=== PATIENT | female | born 1935 | race Caucasian/White ===

== ENCOUNTER → 2017-02-22 | Outpatient (CLI) | payer MEDICARE, BC ==
[~2017-02-22] MED LIST: ALBENZA200 MG PO; ALLERGY SHOT; ANTIVERT 25MG25 MG PO; ARMOUR THYROID PO; ASPIR-LOW81 MG PO; ASPIRIN 32325 MG/TAB PO; ASPIRIN E.C. 8181 MG PO; Armour Thyroid; BENADRYL25 M2; BENADRYL25 MG PO; CALCIUM CARBONATE PO; CEPHALEXIN500 M1 PO; CLARITIN 1010 MG/TAB PO; CLARITIN PO; CLOPIDOGREL; COMBIVENT INH14.7 GM IH; COUMADIN 1MG1 MG/TAB PO; COZAAR; COZAAR 25MG25 MG/TAB PO; DEMEROL 50M50 MG/TAB PO; DOXYCYCLINE 10100 MG PO; EX-LAX15 MG PO; FISH OIL CONC1000 MG PO; FISH OIL1000 MG PO; GOOD SENSE ASP325 M1 PO; HCTZ 25MG25 MG PO; HUMULIN 70/3100 U/M1 SQ; HUMULIN 70/3100 U/ML SC; HYZAAR 50-12.1 UDTAB PO; INSULIN 50/5100 U/ML IJ; INSULIN 70/3100 U/ML IJ; KEPPRA750 MG PO; LASIX 20MG TABL20 MG PO; LASIX PO; LASIX40 MG PO; LEVOTHYROXIN0.025 MG PO; LEVOTHYROXIN0.125 MG PO; LISINOPRIL5 MG PO; LOPRESSOR; LOSARTAN POTASS50 MG PO; LOVENOX120 MG/0.8 SQ; MEPERIDINE HCL50 MG PO; MICARDIS20 MG PO; OGEN; PLAVIX 75MG TAB75 MG PO; RED YEAST RICE PO; SEE LIST; SENSIPAR PO; SYNTHROID0.125 MG/T PO; THYROID; THYROID PO; TRICOR145 MG PO; TYLENOL 500MG500 MG; ZOCOR; ZOCOR 20MG20 MG PO; ZOFRAN 4MG T4 MG/TAB PO
[2017-02-22 17:02] LABS: ADJUSTED CALCIUM 8.8 mg/dL (8.4-10.2); ALBUMIN 4.1 gm/dL (3.5-5.0); BILIRUBIN,TOTAL 0.7 mg/dL (0.0-1.0); CALCIUM 8.9 mg/dL (8.4-10.2); CREATININE, serum 1.1 mg/dL (0.52-1.25); POTASSIUM 4.2 mmol/L (3.4-5.0); TOTAL PROTEIN 7.3 gm/dL (6.4-8.2)
== END ==
LOC: COL.LAB 15:58
PROVIDERS: Internal Medicine Endocrinology, Diabetes & Metabolism
DX: G45.8 Other transient cerebral ischemic attacks and related syndromes (principal); E11.43 Type 2 diabetes mellitus with diabetic autonomic (poly)neuropathy; Z79.4 Long term (current) use of insulin; I12.9 Hypertensive chronic kidney disease with stage 1 through stage 4 chronic kidney disease, or unspecified chronic kidney disease; N18.3 Chronic kidney disease, stage 3 (moderate); E78.2 Mixed hyperlipidemia; E66.01 Morbid (severe) obesity due to excess calories; E03.8 Other specified hypothyroidism

== ENCOUNTER → 2017-02-26 | Outpatient (CLI) | payer MEDICARE, BC ==
[2017-02-27 20:42] LABS: ALBUMIN/CREATININE RATIO URINE 17.5 mg/g (0.0-29.0)
== END ==
LOC: COL.LAB 15:34
DX: G45.8 Other transient cerebral ischemic attacks and related syndromes (principal); E78.2 Mixed hyperlipidemia; E11.43 Type 2 diabetes mellitus with diabetic autonomic (poly)neuropathy; Z79.4 Long term (current) use of insulin; E66.01 Morbid (severe) obesity due to excess calories; E03.8 Other specified hypothyroidism; I25.10 Atherosclerotic heart disease of native coronary artery without angina pectoris; I12.9 Hypertensive chronic kidney disease with stage 1 through stage 4 chronic kidney disease, or unspecified chronic kidney disease; N18.3 Chronic kidney disease, stage 3 (moderate)

== ENCOUNTER 2017-03-18 13:09 | Observation (INO) | payer MEDICARE, BC ==
[~2017-03-18 13:09] MED LIST changes: -BENADRYL25 M2; -HUMULIN 70/3100 U/M1 SQ; -LOVENOX120 MG/0.8 SQ; -SYNTHROID0.125 MG/T PO; -TYLENOL 500MG500 MG
[2017-03-18] MEDS ORDERED: BENADRYL25 M2 (14:32)
[2017-03-18] MEDS ORDERED: TYLENOL 500MG500 MG (14:33)
[2017-03-18 16:32] VITALS: BP 129/52; PULSE 68; TEMP 98.7
[2017-03-18 16:36] LABS: CALCIUM 8.5 mg/dL (8.4-10.2); CREATININE, serum 1.22 mg/dL (0.52-1.25); MEAN CELL VOLUME 94 fl (80.0-100.0); MEAN CORPUSCULAR HGB CONC 32 g/dl (33.0-37.0); MEAN PLATELET VOLUME 9.7 fl (7.4-10.4); PLATELET COUNT 390 K/mm3 (130-400); POTASSIUM 4.1 mmol/L (3.4-5.0); RED BLOOD COUNT 3.79 M/mm3 (4.10-5.30); WHITE BLOOD COUNT 10.3 K/mm3 (4.8-10.8)
[2017-03-18 16:38] LABS: HEMATOCRIT 35.5 % (37.0-47.0); HEMOGLOBIN 11.5 g/dl (12.5-16.0); MEAN CORPUSCULAR HEMOGLOBIN 30 pg (27.0-31.0)
[2017-03-18 16:44] LABS: INR 3.3 (0.8-3.0); PROTHROMBIN TIME 37.9 SECONDS (9.7-12.8)
[2017-03-18 19:40] VITALS: BP 175/67; PULSE 67; TEMP 98.3
[2017-03-19 00:15] VITALS: BP 162/66; PULSE 65; TEMP 98.5
[2017-03-19 04:14] VITALS: BP 145/62; PULSE 66; TEMP 98.5
[2017-03-19 07:45] LABS: BASO # 0.1 (0.0-0.2); BASO % 0.8 % (0.0-2.0); EOS # 0.2 (0.0-0.7); EOS % 2.2 % (0-4.0); GRAN # 7.1 (1.4-6.5); HEMOGLOBIN 12.1 g/dl (12.5-16.0); LYMPH # 2.5 (1.2-3.4); MEAN CELL VOLUME 93 fl (80.0-100.0); MEAN CORPUSCULAR HEMOGLOBIN 30 pg (27.0-31.0); MEAN CORPUSCULAR HGB CONC 33 g/dl (33.0-37.0); MONO # 0.8 (0.1-0.6); MONO % 7.7 % (1.7-9.3); PLATELET COUNT 356 K/mm3 (130-400); RED BLOOD COUNT 3.99 M/mm3 (4.10-5.30); WHITE BLOOD COUNT 10.7 K/mm3 (4.8-10.8)
[2017-03-19 08:07] LABS: CALCIUM 8.7 mg/dL (8.4-10.2); CREATININE, serum 0.99 mg/dL (0.52-1.25); POTASSIUM 3.9 mmol/L (3.4-5.0)
[2017-03-19 08:13] LABS: HEMATOCRIT 36.9 % (37.0-47.0)
[2017-03-19 08:18] VITALS: BP 133/66; PULSE 76; TEMP 97.6
[2017-03-19 09:44] VITALS: BP 152/69; PULSE 73
[2017-03-19] MEDS ORDERED: HUMULIN 70/3100 U/M1 SQ (09:47)
[2017-03-19] MEDS ORDERED: SYNTHROID0.125 MG/T PO (09:49)
== END 2017-03-19 12:27 | disposition home or self-care (01) ==
LOC: SDCO 13:09 → MEDICAL 13:10 → SDCO 13:37 → MEDICAL 13:37 → SDCO 03-19 08:30 → MEDICAL 03-19 12:27
PROVIDERS: Internal Medicine
DX: D12.2 Benign neoplasm of ascending colon (principal); D12.3 Benign neoplasm of transverse colon; D12.4 Benign neoplasm of descending colon; K62.1 Rectal polyp; D12.8 Benign neoplasm of rectum; K64.0 First degree hemorrhoids; K63.89 Other specified diseases of intestine
CPT/HCPCS: OP; G0378; G0379; J2405; J2704; J2765; J3010; J7030

== ENCOUNTER 2017-04-12 06:36 | Day surgery (SDC) | payer MEDICARE, BC ==
[~2017-04-12] VITALS: Ht 154.9 cm; Wt 73.7 kg
[~2017-04-12 06:36] MED LIST changes: +BENADRYL25 M2; +HUMULIN 70/3100 U/M1 SQ; +SYNTHROID0.125 MG/T PO; +TYLENOL 500MG500 MG
[2017-04-12 07:10] VITALS: BP 164/73; PULSE 80; TEMP 97.5
[2017-04-12] MEDS ORDERED: LOVENOX120 MG/0.8 SQ (07:47)
[2017-04-12 08:50] VITALS: BP 136/77; PULSE 98
[2017-04-12 09:05] VITALS: BP 121/66; PULSE 88
[2017-04-12 09:20] VITALS: BP 107/88; PULSE 92
[2017-04-12 09:35] VITALS: BP 148/91; PULSE 83
== END 2017-04-12 09:40 | disposition home or self-care (01) ==
LOC: SDCO 06:36
DX: D12.3 Benign neoplasm of transverse colon (principal); D12.4 Benign neoplasm of descending colon; D12.8 Benign neoplasm of rectum; K63.89 Other specified diseases of intestine; D12.0 Benign neoplasm of cecum; Z86.73 Personal history of transient ischemic attack (TIA), and cerebral infarction without residual deficits; I10 Essential (primary) hypertension; E78.5 Hyperlipidemia, unspecified; R56.9 Unspecified convulsions; E11.9 Type 2 diabetes mellitus without complications; I25.10 Atherosclerotic heart disease of native coronary artery without angina pectoris; E03.9 Hypothyroidism, unspecified; Z79.01 Long term (current) use of anticoagulants; Z79.899 Other long term (current) drug therapy; Z79.4 Long term (current) use of insulin; Z99.81 Dependence on supplemental oxygen
CPT/HCPCS: OP; J2704

== ENCOUNTER → 2017-11-29 | Outpatient (CLI) | payer MEDICARE, BC ==
[~2017-11-29] MED LIST changes: +LOVENOX120 MG/0.8 SQ
== END ==
LOC: COL.RAD 12:36
DX: M47.812 Spondylosis without myelopathy or radiculopathy, cervical region (principal); G31.1 Senile degeneration of brain, not elsewhere classified; G93.89 Other specified disorders of brain; R55 Syncope and collapse; F22 Delusional disorders
CPT/HCPCS: A9585

== ENCOUNTER 2018-01-04 15:30 | Emergency (ER) | payer MEDICARE, BC ==
[~2018-01-04] VITALS: Ht 157.5 cm; Wt 78.2 kg
[2018-01-04 15:33] VITALS: BP 147/63
[2018-01-04 16:21] LABS: BASO # 0.1 (0.0-0.2); BASO % 0.4 % (0.0-2.0); EOS % 0.4 % (0-4.0); GRAN # 8.5 (1.4-6.5); GRAN % 76.3 % (42.2-75.2); LYMPH # 1.7 (1.2-3.4); LYMPH % 15.5 % (20.0-51.0); MEAN CELL VOLUME 97 fl (80.0-100.0); MEAN CORPUSCULAR HGB CONC 33 g/dl (33.0-37.0); MEAN PLATELET VOLUME 9.7 fl (7.4-10.4); MONO # 0.8 (0.1-0.6); PLATELET COUNT 349 K/mm3 (130-400); RED BLOOD COUNT 3.55 M/mm3 (4.10-5.30); REDCELL DISTRIBUTION WIDTH-CV 14.2 % (11.5-14.5)
[2018-01-04 16:22] LABS: INR 2.3 (0.8-3.0); PROTHROMBIN TIME 26.7 SECONDS (9.7-12.8)
[2018-01-04 16:23] LABS: ALBUMIN 4.1 gm/dL (3.5-5.0); BILIRUBIN,TOTAL 0.2 mg/dL (0.0-1.0); CALCIUM 8.5 mg/dL (8.4-10.2); CREATININE, serum 0.97 mg/dL (0.52-1.25); POTASSIUM 4.1 mmol/L (3.4-5.0); TOTAL PROTEIN 7.1 gm/dL (6.4-8.2)
[2018-01-04 16:30] LABS: HEMATOCRIT 34.4 % (37.0-47.0); HEMOGLOBIN 11.3 g/dl (12.5-16.0); MEAN CORPUSCULAR HEMOGLOBIN 32 pg (27.0-31.0)
[2018-01-04 16:53] VITALS: PULSE 76; TEMP 97
== END 2018-01-04 16:54 | disposition home or self-care (01) ==
LOC: COL.ER 15:30
PROVIDERS: Emergency Medicine
DX: S00.93XA Contusion of unspecified part of head, initial encounter (principal); S70.01XA Contusion of right hip, initial encounter; E11.9 Type 2 diabetes mellitus without complications; I48.91 Unspecified atrial fibrillation; Z79.01 Long term (current) use of anticoagulants; Z79.4 Long term (current) use of insulin; W18.30XA Fall on same level, unspecified, initial encounter; Y92.009 Unspecified place in unspecified non-institutional (private) residence as the place of occurrence of the external cause

== ENCOUNTER → 2018-04-01 | Emergency (ER) | payer MEDICARE, BC ==
[~2018-04-01] VITALS: Ht 154.9 cm; Wt 76.8 kg
[2018-04-01 10:08] LABS: BASO # 0.1 (0.0-0.2); BASO % 0.4 % (0.0-2.0); EOS # 0.1 (0.0-0.7); EOS % 0.6 % (0-4.0); GRAN # 8.5 (1.4-6.5); GRAN % 76.3 % (42.2-75.2); HEMATOCRIT 35.4 % (37.0-47.0); HEMOGLOBIN 11.8 g/dl (12.5-16.0); LYMPH # 1.6 (1.2-3.4); LYMPH % 13.9 % (20.0-51.0); MEAN CELL VOLUME 96 fl (80.0-100.0); MEAN CORPUSCULAR HEMOGLOBIN 32 pg (27.0-31.0); MEAN CORPUSCULAR HGB CONC 33 g/dl (33.0-37.0); MEAN PLATELET VOLUME 9.4 fl (7.4-10.4); MONO # 0.9 (0.1-0.6); MONO % 8.4 % (1.7-9.3); PLATELET COUNT 341 K/mm3 (130-400)
[2018-04-01 10:15] LABS: BILIRUBIN,TOTAL 0.2 mg/dL (0.0-1.0); CALCIUM 9.3 mg/dL (8.4-10.2); CREATININE, serum 1.1 mg/dL (0.52-1.25); POTASSIUM 3.6 mmol/L (3.4-5.0); TOTAL PROTEIN 7.5 gm/dL (6.4-8.2)
[2018-04-01 10:17] LABS: INR 1.9 (0.8-3.0); PROTHROMBIN TIME 22.4 SECONDS (9.7-12.8)
[2018-04-01 11:47] VITALS: BP 177/86; PULSE 71; TEMP 97.5
== END ==
LOC: COL.ER 09:14
PROVIDERS: Emergency Medicine
DX: S61.411A Laceration without foreign body of right hand, initial encounter (principal); E16.2 Hypoglycemia, unspecified; Z79.4 Long term (current) use of insulin; Z79.01 Long term (current) use of anticoagulants; W18.39XA Other fall on same level, initial encounter
CPT/HCPCS: J7030

== ENCOUNTER 2018-06-25 12:45 | Outpatient (RCR) | payer MEDICARE, BC ==
[2018-07-12] MEDS ORDERED: COUMADIN 3MG3 MG/TAB PO (23:10)
[2018-07-12] MEDS ORDERED: FISH OIL 500 M1 EAC1 PO (23:11)
[2018-07-12] MEDS ORDERED: KEPPRA 500MG500 MG PO (23:12)
[2018-07-12] MEDS ORDERED: SENOKOT8.6 MG PO (23:12)
[2018-07-12] MEDS ORDERED: HUMULIN 70/3100 U/M1 SQ (23:13)
[2018-07-12] MEDS ORDERED: TYLENOL 500MG500 MG PO (23:13)
[2018-07-12] MEDS ORDERED: EPIPEN 2-PAK1 MG/ML IM (23:14)
[2018-07-12] MEDS ORDERED: BENADRYL25 M2 PO (23:14)
[2018-07-12] MEDS ORDERED: LEVOXYL0.125 MG PO (23:15)
== END 2018-07-31 | disposition home or self-care (01) ==
LOC: WSOT
DX: Z46.89 Encounter for fitting and adjustment of other specified devices (principal); S66.39 Other injury of extensor muscle, fascia and tendon of other and unspecified finger at wrist and hand level; W19.XXXD Unspecified fall, subsequent encounter
CPT/HCPCS: G8987-GO; G8988-GO

== ENCOUNTER 2018-07-12 16:54 | Emergency (ER) | payer MEDICARE, BC ==
[~2018-07-12] VITALS: Ht 152.4 cm; Wt 78.2 kg
[2018-07-12 16:56] VITALS: TEMP 98.5
[2018-07-12 17:24] LABS: INR 2.1 (0.8-3.0); PROTHROMBIN TIME 23.7 SECONDS (9.7-12.8)
[2018-07-12 17:26] LABS: ALBUMIN 4.2 gm/dL (3.5-5.0); BASO # 0.1 (0.0-0.2); BASO % 0.9 % (0.0-2.0); BILIRUBIN,TOTAL 0.2 mg/dL (0.0-1.0); CREATININE, serum 1.1 mg/dL (0.52-1.25); EOS # 0.2 (0.0-0.7); EOS % 1.8 % (0-4.0); GRAN # 6.2 (1.4-6.5); HEMATOCRIT 36.3 % (37.0-47.0); LYMPH # 3.1 (1.2-3.4); LYMPH % 29.1 % (20.0-51.0); MEAN CELL VOLUME 95 fl (80.0-100.0); MEAN CORPUSCULAR HEMOGLOBIN 31 pg (27.0-31.0); MEAN CORPUSCULAR HGB CONC 33 g/dl (33.0-37.0); MEAN PLATELET VOLUME 9.8 fl (7.4-10.4); MONO # 0.9 (0.1-0.6); MONO % 8.7 % (1.7-9.3); PLATELET COUNT 394 K/mm3 (130-400); RED BLOOD COUNT 3.84 M/mm3 (4.10-5.30); TOTAL PROTEIN 7.5 gm/dL (6.4-8.2)
[2018-07-12 17:35] LABS: TROPONIN-I 0.017 ng/mL (0.000-0.034)
[2018-07-12 17:42] LABS: MAGNESIUM 1.9 mg/dL (1.6-2.3)
[2018-07-12 20:10] VITALS: BP 188/75; PULSE 77
[2018-07-12] MEDS ORDERED: COUMADIN 3MG3 MG/TAB PO (23:10)
[2018-07-12] MEDS ORDERED: FISH OIL 500 M1 EAC1 PO (23:11)
[2018-07-12] MEDS ORDERED: SENOKOT8.6 MG PO (23:12)
[2018-07-12] MEDS ORDERED: KEPPRA 500MG500 MG PO (23:12)
[2018-07-12] MEDS ORDERED: TYLENOL 500MG500 MG PO (23:13)
[2018-07-12] MEDS ORDERED: HUMULIN 70/3100 U/M1 SQ (23:13)
[2018-07-12] MEDS ORDERED: BENADRYL25 M2 PO (23:14)
[2018-07-12] MEDS ORDERED: EPIPEN 2-PAK1 MG/ML IM (23:14)
[2018-07-12] MEDS ORDERED: LEVOXYL0.125 MG PO (23:15)
== END 2018-07-12 20:12 | disposition home or self-care (01) ==
LOC: COL.ER 16:54
PROVIDERS: Emergency Medicine
DX: I49.3 Ventricular premature depolarization (principal); R07.89 Other chest pain; I10 Essential (primary) hypertension; E78.5 Hyperlipidemia, unspecified; E11.9 Type 2 diabetes mellitus without complications; Z86.73 Personal history of transient ischemic attack (TIA), and cerebral infarction without residual deficits; Z79.01 Long term (current) use of anticoagulants; Z79.4 Long term (current) use of insulin; Z98.890 Other specified postprocedural states; Z90.49 Acquired absence of other specified parts of digestive tract; Z90.710 Acquired absence of both cervix and uterus
CPT/HCPCS: J7030

== ENCOUNTER → 2018-07-28 | Outpatient (CLI) | payer MEDICARE, BC ==
[~2018-07-28] MED LIST changes: +BENADRYL25 M2 PO; +COUMADIN 3MG3 MG/TAB PO; +EPIPEN 2-PAK1 MG/ML IM; +FISH OIL 500 M1 EAC1 PO; +KEPPRA 500MG500 MG PO; +LEVOXYL0.125 MG PO; +SENOKOT8.6 MG PO; +TYLENOL 500MG500 MG PO
[2018-07-28 13:43] LABS: INR 1.7 (0.8-3.0); PROTHROMBIN TIME 19.8 SECONDS (9.7-12.8)
== END ==
LOC: COL.LAB 12:32
PROVIDERS: Family Medicine
DX: I63.50 Cerebral infarction due to unspecified occlusion or stenosis of unspecified cerebral artery (principal)

== ENCOUNTER 2018-08-02 09:30 | Emergency (ER) | payer MEDICARE, BC ==
[~2018-08-02] VITALS: Ht 152.4 cm; Wt 77.3 kg
[2018-08-02 09:33] VITALS: TEMP 97.9
[2018-08-02 10:27] LABS: BASO # 0.1 (0.0-0.2); BASO % 0.7 % (0.0-2.0); EOS # 0.2 (0.0-0.7); EOS % 1.9 % (0-4.0); GRAN # 6.4 (1.4-6.5); GRAN % 59.3 % (42.2-75.2); HEMOGLOBIN 11.7 g/dl (12.5-16.0); LYMPH # 3.1 (1.2-3.4); LYMPH % 28.8 % (20.0-51.0); MEAN CELL VOLUME 96 fl (80.0-100.0); MEAN CORPUSCULAR HEMOGLOBIN 31 pg (27.0-31.0); MEAN CORPUSCULAR HGB CONC 32 g/dl (33.0-37.0); MEAN PLATELET VOLUME 9.6 fl (7.4-10.4); MONO # 0.9 (0.1-0.6); MONO % 8.5 % (1.7-9.3); PLATELET COUNT 391 K/mm3 (130-400); RED BLOOD COUNT 3.78 M/mm3 (4.10-5.30); REDCELL DISTRIBUTION WIDTH-CV 14.6 % (11.5-14.5)
[2018-08-02 10:28] LABS: HEMATOCRIT 36.4 % (37.0-47.0)
[2018-08-02 12:16] LABS: INR 3.1 (0.8-3.0)
[2018-08-02 12:19] LABS: PARTIAL THROMBOPLASTIN TIME 62.3 SECONDS (26.0-37.0)
[2018-08-02 12:24] LABS: ALANINE AMINOTRANSFERASE 26 U/L (9-52); ALBUMIN 3.9 gm/dL (3.5-5.0); ALKALINE PHOSPHATASE 105 U/L (50-136); ANION GAP 12 mmol/L (7-16); AST,SGOT 18 U/L (15-37); BILIRUBIN,TOTAL 0.3 mg/dL (0.0-1.0); BLOOD UREA NITROGEN 22 mg/dL (7-17); CALCIUM 7.4 mg/dL (8.4-10.2); CARBON DIOXIDE 20 mmol/L (22-30); CHLORIDE 104 mmol/L (98-107); CREATININE, serum 1.21 mg/dL (0.52-1.25); GLUCOSE 166 mg/dL (74-106); POTASSIUM 4.9 mmol/L (3.4-5.0); SODIUM 136 mmol/L (137-145); TOTAL PROTEIN 7.2 gm/dL (6.4-8.2)
[2018-08-02 12:36] LABS: TROPONIN-I < 0.012 ng/mL (0.000-0.034)
[2018-08-02 14:20] VITALS: BP 131/78; PULSE 98
[2018-08-03] MEDS ORDERED: NEURONTIN300 MG/CAP PO (10:06)
[2018-08-03] MEDS ORDERED: FENTANYL 12MCG TD (10:10)
[2018-08-04] MEDS ORDERED: DILAUDID 2MG TAB2 MG PO (11:47)
[2018-08-04] MEDS ORDERED: LIDODERM 5% PATC1 EA TP (11:47)
== END 2018-08-02 14:20 | disposition home or self-care (01) ==
LOC: COL.ER 09:30
PROVIDERS: Family Medicine
DX: G89.29 Other chronic pain (principal); M54.5 Low back pain; E11.9 Type 2 diabetes mellitus without complications; R53.81 Other malaise; Z79.4 Long term (current) use of insulin; Z79.02 Long term (current) use of antithrombotics/antiplatelets
CPT/HCPCS: J1170; J7030

== ENCOUNTER 2018-11-29 16:44 | Observation (INO) | payer MEDICARE, BC ==
[~2018-11-29] VITALS: Ht 154.9 cm; Wt 72.1 kg
[~2018-11-29 16:44] MED LIST changes: +DILAUDID 2MG TAB2 MG PO; +FENTANYL 12MCG TD; +LIDODERM 5% PATC1 EA TP; +NEURONTIN300 MG/CAP PO
[2018-11-29] MEDS ORDERED: LEVEMIR100 U/ML SQ (19:26)
[2018-11-29] MEDS ORDERED: LEVOXYL0.125 MG PO (19:27)
[2018-11-29] MEDS ORDERED: TOPROL XL 25MG25 MG PO (19:29)
[2018-11-29 19:54] LABS: BASO # 0.1 (0.0-0.2); BASO % 1.3 % (0.0-2.0); EOS # 0.7 (0.0-0.7); EOS % 6.8 % (0-4.0); GRAN # 7.1 (1.4-6.5); HEMOGLOBIN 10.9 g/dl (12.5-16.0); LYMPH # 1.7 (1.2-3.4); MEAN CELL VOLUME 85 fl (80.0-100.0); MEAN CORPUSCULAR HEMOGLOBIN 28 pg (27.0-31.0); MEAN CORPUSCULAR HGB CONC 32 g/dl (33.0-37.0); MEAN PLATELET VOLUME 9.1 fl (7.4-10.4); MONO # 0.8 (0.1-0.6); MONO % 7.5 % (1.7-9.3); PLATELET COUNT 399 K/mm3 (130-400); RED BLOOD COUNT 3.94 M/mm3 (4.10-5.30); REDCELL DISTRIBUTION WIDTH-CV 16.5 % (11.5-14.5)
[2018-11-29 19:59] LABS: HEMATOCRIT 33.6 % (37.0-47.0)
[2018-11-29 20:06] LABS: ALANINE AMINOTRANSFERASE 21 U/L (9-52); ALBUMIN 4.4 gm/dL (3.5-5.0); ALKALINE PHOSPHATASE 170 U/L (50-136); ANION GAP 11 mmol/L (7-16); AST,SGOT 21 U/L (15-37); BILIRUBIN,TOTAL 0.4 mg/dL (0.0-1.0); BLOOD UREA NITROGEN 42 mg/dL (7-17); C-REACTIVE PROTEIN 2.7 mg/dL (0.0-0.9); CALCIUM 7.7 mg/dL (8.4-10.2); CARBON DIOXIDE 29 mmol/L (22-30); CHLORIDE 97 mmol/L (98-107); CREATININE, serum 1.81 mg/dL (0.52-1.25); GLUCOSE 234 mg/dL (74-106); POTASSIUM 4.2 mmol/L (3.4-5.0); SODIUM 137 mmol/L (137-145)
[2018-11-29 20:15] LABS: TROPONIN-I < 0.012 ng/mL (0.000-0.034)
[2018-11-29 21:08] LABS: COLLECTION METHOD CLEAN CATCH
[2018-11-29 21:20] LABS: PH 6 (5-8); SQUAMOUS EPITHELIAL 0-2 /hpf; URINE APPEARANCE Clear; URINE BACTERIA Rare /hpf; URINE BILIRUBIN Negative (NEGATIVE); URINE BLOOD Negative (NEGATIVE); URINE COLOR Yellow; URINE GLUCOSE Negative (NEGATIVE); URINE KETONE Negative (NEGATIVE); URINE LEUKOCYTE ESTERASE Trace (NEGATIVE); URINE NITRATE Positive (NEGATIVE); URINE PROTEIN(semi-quant) Negative (NEGATIVE); URINE RBC 0-2 /hpf; URINE UROBILINOGEN Negative (NEGATIVE)
[2018-11-29 22:23] VITALS: BP 131/55; PULSE 78; TEMP 97.8
--- NOTE | 2018-11-29 23:30 | NUR ---
Admitted to medical from ER- dx-CHF, SEB, BLE edema/redness. Alert/oriented- has generalized rash all over- states itching-- Benadryl prn given- - INT to R/AC. Up to BSC with one assist- voiding without problems. Tele on. BLE edema/redness- pt states this is not new
[2018-11-29] MEDS ORDERED: NORVASC 10MG10 MG PO (23:37)
[2018-11-29] MEDS ORDERED: KEPPRA750 MG PO (23:51)
[2018-11-30] MEDS ORDERED: ASPIRIN 81M81 MG/TA2 PO (00:07)
[2018-11-30] MEDS ORDERED: DULCOLAX STOOL100 MG PO (00:08)
[2018-11-30] MEDS ORDERED: DEMADEX 20MG20 M1 PO (00:09)
[2018-11-30] MEDS ORDERED: K-DUR20 MEQ PO (00:12)
[2018-11-30] MEDS ORDERED: EUCERIN1 CRE TOP (00:13)
[2018-11-30] MEDS ORDERED: SARNA ANTI-ITC222 ML TP (00:14)
[2018-11-30] MEDS ORDERED: GAS RELIEF80 MG PO (00:15)
[2018-11-30] MEDS ORDERED: NYSTATIN POWDER30 GM TOP (00:16)
[2018-11-30] MEDS ORDERED: HAIRSKINNAILS PO (00:16)
[2018-11-30] MEDS ORDERED: CORDARONE200 MG/TAB PO (00:19)
[2018-11-30] MEDS ORDERED: NOVOLOG FLEX100 U/ML SQ (00:21)
[2018-11-30] MEDS ORDERED: LEVEMIR FLEX100 U/ML SQ (00:22)
[2018-11-30 05:02] VITALS: BP 122/50; PULSE 66
--- NOTE | 2018-11-30 05:32 | NUR ---
Was given Benadryl for the constant overall itching, did not seem to help much-- was then given the Sarna lotion that was ordred- that was very effective. Pt is trying to rest at this time. IV fluids on NS at 80cc/hr just for 500cc.
--- NOTE | 2018-11-30 08:13 | NUR ---
Pt alert and oriented. Pt weak assisted to BSC x1 with gait belt. Pt incont of urine. Pt has red rash on trunk and back. Sarna cream used to manage itching along with PRN Benadryl. Pt cares provided and pt up to chair with call light in reach. Pt denies SOB. Pt lungs clear. Pt IV patent no redness or infiltration.
[2018-11-30 08:17] VITALS: BP 118/58; PULSE 90; TEMP 97.5
[2018-11-30 09:27] LABS: INR 2.2 (0.8-3.0); PROTHROMBIN TIME 24.5 SECONDS (9.7-12.8)
--- NOTE | 2018-11-30 10:11 | NUR ---
Patient was indisposed.
[2018-11-30 11:42] VITALS: BP 112/66; PULSE 83; TEMP 97.5
--- NOTE | 2018-11-30 11:51 | NUR ---
Pt complains of itching all over. Pt given PRN Benadryl to help and Sarna cream with little relief. Pt has call light in reach.
[2018-11-30 11:57] LABS: BASO # 0.1 (0.0-0.2); BASO % 1.1 % (0.0-2.0); EOS # 0.9 (0.0-0.7); EOS % 9.3 % (0-4.0); GRAN # 6.3 (1.4-6.5); GRAN % 65.7 % (42.2-75.2); LYMPH # 1.4 (1.2-3.4); LYMPH % 14.2 % (20.0-51.0); MEAN CELL VOLUME 83 fl (80.0-100.0); MEAN CORPUSCULAR HEMOGLOBIN 27 pg (27.0-31.0); MEAN CORPUSCULAR HGB CONC 33 g/dl (33.0-37.0); MONO # 0.9 (0.1-0.6); MONO % 9.4 % (1.7-9.3); PLATELET COUNT 408 K/mm3 (130-400); RED BLOOD COUNT 4.01 M/mm3 (4.10-5.30); REDCELL DISTRIBUTION WIDTH-CV 16.5 % (11.5-14.5)
[2018-11-30 12:00] LABS: HEMATOCRIT 33.4 % (37.0-47.0)
[2018-11-30 12:05] LABS: CALCIUM 7.7 mg/dL (8.4-10.2); CREATININE, serum 1.67 mg/dL (0.52-1.25); POTASSIUM 3.7 mmol/L (3.4-5.0)
--- NOTE | 2018-11-30 14:06 | NUR ---
Plan to return home. SW met with patient about DC Plan. Patient reports that her adult DTR resides with her but is also disabled. Pt indicated that it is increasingly had to move about in her home. Patient is agreeable to home health services. PT chose [facility]. PT indicated that her daughter is her DPOA. Pt reports that she uses a tri-walker daily, CPAP, and glasses. Pt report that he DTR will transport home. PCP is Dr. Galindo, DPOA number is . PT reports [facility] for RX. SW will need to fax referral to [facility] after obtaining PT/OT orders and evaluation.
[2018-11-30 16:02] VITALS: BP 119/51; PULSE 75; TEMP 97.4
--- NOTE | 2018-11-30 17:03 | NUR ---
Pt stable this afternoon. Pt A/Ox3. Pt reports itching little better this afternoon but starting to increase again. PRN Benadryl given to manage itching. Pt continues to exhibit red rash on trunk, arms, and back. Pt sitting up in chair. Pt uses BSC d/t weakness noted. Pt asked if she would like to ambulate to end of bed and back and pt refused. Pt has call light in reach.
[2018-11-30 19:51] VITALS: BP 109/54; PULSE 73; TEMP 97.3
[2018-11-30 23:17] VITALS: BP 117/50; PULSE 64; TEMP 98.7
[2018-12-01 01:11] VITALS: BP 104/67; PULSE 74; TEMP 98.5
[2018-12-01 03:27] VITALS: BP 139/61; PULSE 83; TEMP 97.6
--- NOTE | 2018-12-01 03:43 | NUR ---
PT RAMAINS TO BE ITICHING. RECIEVING BENADRYL AND ANTI-ITCH LOTION. NOTED SAMLL RED RAISED RASH TO SKIN ALL OVER PT BODY. CONTINUES TO GET IV FLUIDS NO REDNESS TO SITE OR EDEMA. NO NOTED PAIN OR N/V/D THIS SHIFT
--- NOTE | 2018-12-01 07:41 | NUR ---
Pt alert and oriented. Pt reports did not sleep well last NOC d/t itching. Pt still has red rash on trunk, arms, and back. Pt itching managed with PRN Sarna lotion and Bendadryl. Pt RAC IV flushed and patent. No redness or infiltration noted. Pt BS 231 this am. Pt denies pain. Pt has call light in reach and resting in bed at this time with warm blanket per request.
[2018-12-01 08:07] VITALS: BP 124/60; PULSE 85; TEMP 97.8
[2018-12-01 08:13] LABS: BASO # 0.1 (0.0-0.2); EOS # 0.9 (0.0-0.7); EOS % 9.8 % (0-4.0); GRAN # 5.9 (1.4-6.5); HEMOGLOBIN 10.4 g/dl (12.5-16.0); LYMPH # 1.7 (1.2-3.4); LYMPH % 17.8 % (20.0-51.0); MEAN CELL VOLUME 86 fl (80.0-100.0); MEAN CORPUSCULAR HEMOGLOBIN 27 pg (27.0-31.0); MEAN CORPUSCULAR HGB CONC 32 g/dl (33.0-37.0); MEAN PLATELET VOLUME 9.5 fl (7.4-10.4); MONO # 0.9 (0.1-0.6); PLATELET COUNT 372 K/mm3 (130-400); RED BLOOD COUNT 3.83 M/mm3 (4.10-5.30); REDCELL DISTRIBUTION WIDTH-CV 16.5 % (11.5-14.5)
[2018-12-01 08:23] LABS: CALCIUM 7.5 mg/dL (8.4-10.2); CREATININE, serum 1.62 mg/dL (0.52-1.25); POTASSIUM 3.6 mmol/L (3.4-5.0)
[2018-12-01 08:53] LABS: THYROID STIMULATING HORMONE 11.3 uIU/mL (0.465-4.680)
[2018-12-01 12:51] VITALS: BP 114/52; PULSE 73; TEMP 97.5
[2018-12-01 15:53] VITALS: BP 122/58; PULSE 74; TEMP 97.8
--- NOTE | 2018-12-01 16:18 | NUR ---
Pt stable this afternoon. Pt alert and oriented. Pt signed release of records to obtain records from [place] for recent hospital stay info to compare creatinine levels. Pt continues to take Benadryl and use Sarna cream PRN for itching management. Pt still has red rash on back/trunk and arms noted. Pt slept for a couple hours this afternoon. Pt lying in bed now with call light in reach and denies needs.
--- NOTE | 2018-12-01 17:13 | NUR ---
Pt had whole blood sugar reported of 45. Pt given 118mL of orange juice and pt had ordered supper that had yogurt, pancake, and banana. Pt ate 100% and drank OJ. Pt blood sugar up to 55 at recheck at 1658. Will recheck in 15min. Dr. Jesus updated and order to hold insulin given for supper dose. Pt alert and oriented and resting in bed with call light in reach.
--- NOTE | 2018-12-01 17:39 | NUR ---
Pt blood sugar rechecked and was 59. Pt given more orange juice and peanut butter and crackers. Will recheck in 30min. Pt alert and oriented and resting in bed with call light in reach.
[2018-12-01 19:46] VITALS: BP 114/50; PULSE 68; TEMP 97.9
--- NOTE | 2018-12-01 20:50 | NUR ---
Shift assessment complete. Pt resting in bed, awake, a&o, cooperative c cares. Da at bedside, changing glucometer implant. Pt reports continued generalized itching. Denies other c/o. Pt noted to have light, variable rash from hives resolving. Will admin PRN benadryl c HS meds. Pt denies other c/o. INT patent. Tele in place. Pt s further needs. Call light in reach, will monitor.
[2018-12-02 00:23] VITALS: BP 129/55; PULSE 71; TEMP 98.2
[2018-12-02 07:20] VITALS: BP 141/69; PULSE 79; TEMP 98.3
--- NOTE | 2018-12-02 08:02 | NUR ---
Pt resting in bed with call light within reach and IVF infusing per orders. States she is extremely itchy; PRN benadryl given. Insulin given per orders. Denies further needs at this time; will continue to monitor.
--- NOTE | 2018-12-02 10:28 | NUR ---
Initial visit; Patient very uncomfortable, thanked Chaplai for stopping and offering empathy and prayer. [place] House Operator will follow up.
[2018-12-02 11:00] VITALS: BP 121/58; PULSE 74; TEMP 97.9
[2018-12-02] MEDS ORDERED: BENADRYL50 MG PO (14:02)
[2018-12-02] MEDS ORDERED: SYNTHROID 0.10.15 MG PO (14:04)
[2018-12-02] MEDS ORDERED: PLAVIX 75MG TAB75 MG PO (14:08)
--- NOTE | 2018-12-02 15:05 | NUR ---
Discharge orders received. All discharge instructions, medications, and follow up appointments reviewed with daughter. INT and telemetry removed. All questions answered in depth. Reviewed importance of following medication list regarding allergies and follow up. Denies further needs. Pt discharges.
--- NOTE | 2018-12-02 15:52 | NUR ---
JANETTE contacted Shruti at [facility] to inquire about referral. Shruti reports that the patient already has services set up through them and that they can resume them upon discharge. The patient is to discharge back home with her daughter today, 12/02, and resume home health for penitentiary/OT/PT through [facility]. No additional needs at this time.
== END 2018-12-02 15:00 | disposition home or self-care (01) ==
LOC: COL.ER 16:44 → MEDICAL 21:06
PROVIDERS: Hospitalist; Nurse Practitioner; Physician Assistant; ADMIT Internal Medicine
DX: N17.9 Acute kidney failure, unspecified (principal); L50.9 Urticaria, unspecified; E10.9 Type 1 diabetes mellitus without complications; I25.10 Atherosclerotic heart disease of native coronary artery without angina pectoris; I46.9 Cardiac arrest, cause unspecified; S06.9X0A Unspecified intracranial injury without loss of consciousness, initial encounter; E03.9 Hypothyroidism, unspecified; Z95.1 Presence of aortocoronary bypass graft; Z79.01 Long term (current) use of anticoagulants; Z79.82 Long term (current) use of aspirin; Z79.4 Long term (current) use of insulin; Z87.891 Personal history of nicotine dependence; Z88.2 Allergy status to sulfonamides; Z88.3 Allergy status to other anti-infective agents; Z88.5 Allergy status to narcotic agent; Z91.048 Other nonmedicinal substance allergy status; Z88.1 Allergy status to other antibiotic agents; Z88.6 Allergy status to analgesic agent; Z88.8 Allergy status to other drugs, medicaments and biological substances
CPT/HCPCS: G0378; J1815; J7030; J7040

== ENCOUNTER → 2019-01-06 | Outpatient (REF) ==
[~2019-01-06] MED LIST changes: +ASPIRIN 81M81 MG/TA2 PO; +BENADRYL50 MG PO; +CORDARONE200 MG/TAB PO; +DEMADEX 20MG20 M1 PO; +DULCOLAX STOOL100 MG PO; +EUCERIN1 CRE TOP; +GAS RELIEF80 MG PO; +HAIRSKINNAILS PO; +K-DUR20 MEQ PO; +LEVEMIR FLEX100 U/ML SQ; +LEVEMIR100 U/ML SQ; +NORVASC 10MG10 MG PO; +NOVOLOG FLEX100 U/ML SQ; +NYSTATIN POWDER30 GM TOP; +SARNA ANTI-ITC222 ML TP; +SYNTHROID 0.10.15 MG PO; +TOPROL XL 25MG25 MG PO
[2019-01-06 16:52] LABS: CALCIUM 9.1 mg/dL (8.4-10.2); CREATININE, serum 1.98 mg/dL (0.52-1.25); POTASSIUM 5.1 mmol/L (3.4-5.0)
== END ==
LOC: ZCOL.LAB 16:28
PROVIDERS: Internal Medicine
DX: E87.5 Hyperkalemia (principal)

== ENCOUNTER 2019-03-26 20:19 | Emergency (ER) | payer MEDICARE, BC ==
[~2019-03-26] VITALS: Ht 152.4 cm; Wt 74.2 kg
[2019-03-26 20:22] VITALS: TEMP 97.2
[2019-03-26] MEDS ORDERED: ATARAX50 MG PO (20:54)
[2019-03-26] MEDS ORDERED: SYNTHROID0.175 MG PO (20:56)
[2019-03-26] MEDS ORDERED: DEMADEX 20MG20 M1 PO (20:57)
[2019-03-26] MEDS ORDERED: K-TAB20 PO (20:58)
[2019-03-26 22:36] VITALS: BP 114/69; PULSE 65
== END 2019-03-26 22:36 | disposition home or self-care (01) ==
LOC: COL.ER 20:19
DX: S00.03XA Contusion of scalp, initial encounter (principal); M54.2 Cervicalgia; E11.22 Type 2 diabetes mellitus with diabetic chronic kidney disease; N18.9 Chronic kidney disease, unspecified; I25.10 Atherosclerotic heart disease of native coronary artery without angina pectoris; Z95.1 Presence of aortocoronary bypass graft; Z79.01 Long term (current) use of anticoagulants; Z79.4 Long term (current) use of insulin; W01.0XXA Fall on same level from slipping, tripping and stumbling without subsequent striking against object, initial encounter; Y92.009 Unspecified place in unspecified non-institutional (private) residence as the place of occurrence of the external cause

== ENCOUNTER 2019-04-04 20:18 | Emergency (ER) | payer MEDICARE, BC ==
[~2019-04-04] VITALS: Ht 152.4 cm; Wt 72.7 kg
[~2019-04-04 20:18] MED LIST changes: +ATARAX50 MG PO; +K-TAB20 PO; +SYNTHROID0.175 MG PO
[2019-04-04 20:21] VITALS: BP 135/68; TEMP 97.6
[2019-04-04] MEDS ORDERED: CEPHALEXIN500 M1 PO (21:28)
[2019-04-04 21:40] VITALS: PULSE 57
== END 2019-04-04 21:40 | disposition home or self-care (01) ==
LOC: COL.ER 20:18
DX: I87.2 Venous insufficiency (chronic) (peripheral) (principal); I25.10 Atherosclerotic heart disease of native coronary artery without angina pectoris; E10.9 Type 1 diabetes mellitus without complications; Z79.01 Long term (current) use of anticoagulants; Z95.1 Presence of aortocoronary bypass graft

== ENCOUNTER 2019-07-13 22:30 | Emergency (ER) | payer MEDICARE, BC ==
[~2019-07-13] VITALS: Ht 152.4 cm; Wt 77.3 kg
[2019-07-13 22:39] VITALS: TEMP 98.2
[2019-07-13] MEDS ORDERED: ZYRTEC 10MG10 MG PO (23:28)
[2019-07-13] MEDS ORDERED: LIDEX CR 15GM TP (23:28)
[2019-07-14 00:12] LABS: COLLECTION METHOD CATHETER
[2019-07-14 00:25] LABS: BASO # 0.1 (0.0-0.2); BASO % 0.9 % (0.0-2.0); EOS # 0.3 (0.0-0.7); EOS % 2.6 % (0-4.0); GRAN # 7.7 (1.4-6.5); GRAN % 73.1 % (42.2-75.2); HEMOGLOBIN 10.2 g/dl (12.5-16.0); LYMPH # 1.4 (1.2-3.4); LYMPH % 13.7 % (20.0-51.0); MEAN CELL VOLUME 87 fl (80.0-100.0); MEAN CORPUSCULAR HEMOGLOBIN 28 pg (27.0-31.0); MEAN CORPUSCULAR HGB CONC 33 g/dl (33.0-37.0); MEAN PLATELET VOLUME 8.3 fl (7.4-10.4); MONO % 9.2 % (1.7-9.3); PLATELET COUNT 363 K/mm3 (130-400); REDCELL DISTRIBUTION WIDTH-CV 14.2 % (11.5-14.5)
[2019-07-14 00:33] LABS: HEMATOCRIT 31.3 % (37.0-47.0)
[2019-07-14 00:34] LABS: ALBUMIN 3.8 gm/dL (3.5-5.0); BILIRUBIN,TOTAL 0.3 mg/dL (0.0-1.0); CALCIUM 7.8 mg/dL (8.4-10.2); CREATININE, serum 1.68 (0.52-1.25); POTASSIUM 3.7 mmol/L (3.4-5.0); TOTAL PROTEIN 7.1 gm/dL (6.4-8.2)
[2019-07-14 00:50] LABS: PH 6 (5-8); SQUAMOUS EPITHELIAL None Seen /hpf; URINE APPEARANCE Clear; URINE BACTERIA None Seen /hpf; URINE BILIRUBIN Negative (NEGATIVE); URINE BLOOD Negative (NEGATIVE); URINE COLOR Straw; URINE GLUCOSE Negative (NEGATIVE); URINE KETONE Negative (NEGATIVE); URINE LEUKOCYTE ESTERASE 1+ (NEGATIVE); URINE NITRATE Negative (NEGATIVE); URINE PROTEIN(semi-quant) Negative (NEGATIVE); URINE RBC 0-2 /hpf; URINE UROBILINOGEN Negative (NEGATIVE)
[2019-07-14 01:11] LABS: INR 1.4 (0.8-3.0); PROTHROMBIN TIME 17.1 SECONDS (9.7-12.8)
[2019-07-14] MEDS ORDERED: MACROBID 1100 MG/CAP PO ×2 (03:46)
[2019-07-14 04:25] VITALS: BP 138/79; PULSE 69
== END 2019-07-14 04:25 | disposition home or self-care (01) ==
LOC: COL.ER 22:30
PROVIDERS: Emergency Medicine
DX: S00.93XA Contusion of unspecified part of head, initial encounter (principal); N39.0 Urinary tract infection, site not specified; E10.9 Type 1 diabetes mellitus without complications; Z79.01 Long term (current) use of anticoagulants; Z95.1 Presence of aortocoronary bypass graft; Z79.4 Long term (current) use of insulin; W01.0XXA Fall on same level from slipping, tripping and stumbling without subsequent striking against object, initial encounter; Y92.009 Unspecified place in unspecified non-institutional (private) residence as the place of occurrence of the external cause
CPT/HCPCS: J1170

== ENCOUNTER 2019-10-09 12:19 | Inpatient (IN) | payer MEDICARE, BC ==
[~2019-10-09] VITALS: Ht 167.6 cm; Wt 69.8 kg
[~2019-10-09 12:19] MED LIST changes: +COUMADIN 2MG2 MG/TAB PO; -COUMADIN 3MG3 MG/TAB PO; +K-TAB10 PO; -K-TAB20 PO; +LIDEX CR 15GM TP; +MACROBID 1100 MG/CAP PO; +ZYRTEC 10MG10 MG PO
[2019-10-09 13:40] LABS: COLLECTION METHOD CATHETER
[2019-10-09 13:56] LABS: MUCOUS Present /lpf; PH 6 (5-8); URINE APPEARANCE Hazy; URINE BACTERIA Rare /hpf; URINE BILIRUBIN Negative (NEGATIVE); URINE BLOOD Negative (NEGATIVE); URINE COLOR Straw; URINE GLUCOSE Negative (NEGATIVE); URINE KETONE Negative (NEGATIVE); URINE LEUKOCYTE ESTERASE 2+ (NEGATIVE); URINE NITRATE Positive (NEGATIVE); URINE PROTEIN(semi-quant) Negative (NEGATIVE); URINE RBC 0-2 /hpf; URINE UROBILINOGEN Negative (NEGATIVE)
[2019-10-09 14:20] LABS: BASO # 0.1 (0.0-0.2); BASO % 0.5 % (0.0-2.0); EOS % 0.1 % (0-4.0); GRAN # 11.3 (1.4-6.5); GRAN % 85.6 % (42.2-75.2); HEMOGLOBIN 11.7 g/dl (12.5-16.0); LYMPH # 0.9 (1.2-3.4); LYMPH % 6.4 % (20.0-51.0); MEAN CELL VOLUME 85 fl (80.0-100.0); MEAN CORPUSCULAR HEMOGLOBIN 28 pg (27.0-31.0); MEAN CORPUSCULAR HGB CONC 33 g/dl (33.0-37.0); MEAN PLATELET VOLUME 9.3 fl (7.4-10.4); MONO # 0.9 (0.1-0.6); PLATELET COUNT 331 K/mm3 (130-400); RED BLOOD COUNT 4.22 M/mm3 (4.10-5.30); REDCELL DISTRIBUTION WIDTH-CV 13.6 % (11.5-14.5)
[2019-10-09 14:23] LABS: HEMATOCRIT 35.8 % (37.0-47.0)
[2019-10-09 14:27] LABS: INR 1.9 (0.8-3.0); PROTHROMBIN TIME 22.4 SECONDS (9.7-12.8)
[2019-10-09 14:28] LABS: ALBUMIN 4.3 gm/dL (3.5-5.0); BILIRUBIN,TOTAL 0.3 mg/dL (0.0-1.0); CALCIUM 8.5 mg/dL (8.4-10.2); CREATININE, serum 1.44 (0.52-1.25); POTASSIUM 3.7 mmol/L (3.4-5.0); TOTAL PROTEIN 7.7 gm/dL (6.4-8.2)
[2019-10-09 18:44] VITALS: BP 104/56; PULSE 76; TEMP 97.8
--- NOTE | 2019-10-09 21:00 | NUR ---
Initial shift assessment done- admitted to medical tonight, VSS, IV fluids of NS at 125cc/hr- clarifying home meds/doing the 5 page admission- will call fausto MACK for some changes in pts meds from home- requesting atarax and benadryl- will ask Fausto MACK- Up to BSC voiding petros urine.- has lower legs wrapped- states folowing DR. Nogueira for lower ext wounds/poor circulation, no edema noted- pt states neck and right knee pain 04/04- will give tylenol as ordered, does not want ice to knee as ordered, alos refusing SCds at this time
[2019-10-09] MEDS ORDERED: LOPRESSOR 225 MG/TAB PO (22:07)
[2019-10-09] MEDS ORDERED: BENADRYL25 M2 PO (22:13)
[2019-10-09 23:36] VITALS: BP 150/51; PULSE 72; TEMP 97.8
[2019-10-10 03:25] VITALS: BP 154/63; PULSE 75; TEMP 98.5
--- NOTE | 2019-10-10 05:53 | NUR ---
Did not sleep much during the night- VSS, did get Tylenol for right knee pain and neck pain, Up to BSC every couple hours-voiding small amounts, often
[2019-10-10 07:24] LABS: BASO # 0.1 (0.0-0.2); BASO % 0.9 % (0.0-2.0); EOS # 0.1 (0.0-0.7); EOS % 1.7 % (0-4.0); GRAN % 66.5 % (42.2-75.2); HEMOGLOBIN 10.2 g/dl (12.5-16.0); LYMPH # 1.6 (1.2-3.4); LYMPH % 20.8 % (20.0-51.0); MEAN CELL VOLUME 85 fl (80.0-100.0); MEAN CORPUSCULAR HEMOGLOBIN 27 pg (27.0-31.0); MEAN CORPUSCULAR HGB CONC 32 g/dl (33.0-37.0); MEAN PLATELET VOLUME 9.6 fl (7.4-10.4); MONO # 0.7 (0.1-0.6); MONO % 9.7 % (1.7-9.3); PLATELET COUNT 297 K/mm3 (130-400); RED BLOOD COUNT 3.75 M/mm3 (4.10-5.30); REDCELL DISTRIBUTION WIDTH-CV 13.6 % (11.5-14.5)
[2019-10-10 07:30] LABS: INR 1.9 (0.8-3.0); PROTHROMBIN TIME 22.6 SECONDS (9.7-12.8)
[2019-10-10 07:37] LABS: CALCIUM 7.4 mg/dL (8.4-10.2); CREATININE, serum 1.25 (0.52-1.25); POTASSIUM 3.7 mmol/L (3.4-5.0)
[2019-10-10 07:41] LABS: HEMATOCRIT 31.9 % (37.0-47.0)
--- NOTE | 2019-10-10 08:00 | NUR ---
Patient in sitting up on edge of bed. Alert and oriented x 3. Shift assessment complete. Patient states she typically takes 20 units of humolin in the AM before meals, upset that sliding scale is different while at hospital. Educated patient on change while in hospital. Will talk to hospitalist about adjusting insulin regimen. Patient concerned that blood glucose will not be adequatly controled. Compression dressing to BLE. Denies further needs at this time.
[2019-10-10 09:00] VITALS: BP 123/45; PULSE 81; TEMP 97.8
[2019-10-10 13:06] VITALS: BP 161/56; PULSE 53; TEMP 97.9
--- NOTE | 2019-10-10 15:00 | NUR ---
Patient requests benadryl for seasonal allergies, given per orders. Patient also requests pain medication for right knee pain.
--- NOTE | 2019-10-10 15:11 | NUR ---
Biodiesel Production Technician met with patient and patient's grandson Keon (ph#[phone]) to discuss discharge planning. Patient lives with her daughter Kristi (ph#[phone]) and patient states her daughter is in the ER at this time. Patient states Keon is great support for her. Patient sees Dr. Sahu for primary care and obtains prescriptions from [facility]. Patient reports independence with ADLS and utilizes a walker. Patient also has cane and crutches. Patient states she uses oxygen from [facility] pharmacy although states she will need to change DME provider as [facility] no longer does oxygen. Patient states she currently has Home Health through [facility] and would like to continue. SW discussed Hospitalist screen to IRP. Patient expressed interest and stated if IPR did not work out, she prefers HH to SNF placement. Patient has been to [facility] previously. JANETTE sent referral to [facility] and will continue to follow.
[2019-10-10 16:33] VITALS: BP 147/52; PULSE 60; TEMP 98
--- NOTE | 2019-10-10 18:42 | NUR ---
Patient has done well throughout the day. Complains of occasional right knee pain. Patient has been concered about her insulin all day. Have notified physician and insulin regimen adjusted. Assisted patient to bedside comode throughout the day, x2 assist. Patient moves slowly but has steady gait. Denies further needs at this time. Will report off to assistant shift supervisor.
[2019-10-10 20:09] VITALS: BP 146/57; PULSE 62; TEMP 98.5
--- NOTE | 2019-10-10 22:00 | NUR ---
Assessment complete. Pt sitting on side of bed. c/o pain to shoulders at 5/10. PRN tylenol given and hot pack applied. Pt also c/o itching - prn benadryl given. Pt denies further needs at this time. Bed alarm on. Call light within reach.
[2019-10-10 22:53] VITALS: BP 135/44; PULSE 62; TEMP 98.5
[2019-10-11 00:03] VITALS: BP 127/57; PULSE 90; TEMP 97.9
[2019-10-11 02:48] VITALS: BP 158/73; PULSE 64; TEMP 98
[2019-10-11 07:04] LABS: BASO # 0.1 (0.0-0.2); BASO % 0.8 % (0.0-2.0); EOS # 0.3 (0.0-0.7); EOS % 3.2 % (0-4.0); GRAN # 6.4 (1.4-6.5); GRAN % 67.3 % (42.2-75.2); HEMOGLOBIN 11.2 g/dl (12.5-16.0); LYMPH # 1.9 (1.2-3.4); MEAN CELL VOLUME 84 fl (80.0-100.0); MEAN CORPUSCULAR HEMOGLOBIN 27 pg (27.0-31.0); MEAN CORPUSCULAR HGB CONC 32 g/dl (33.0-37.0); MEAN PLATELET VOLUME 9.3 fl (7.4-10.4); MONO # 0.8 (0.1-0.6); MONO % 8.4 % (1.7-9.3); PLATELET COUNT 309 K/mm3 (130-400); RED BLOOD COUNT 4.15 M/mm3 (4.10-5.30); REDCELL DISTRIBUTION WIDTH-CV 13.6 % (11.5-14.5)
[2019-10-11 07:12] LABS: CALCIUM 8.1 mg/dL (8.4-10.2); CREATININE, serum 1.17 (0.52-1.25); POTASSIUM 3.9 mmol/L (3.4-5.0)
[2019-10-11 08:19] VITALS: BP 154/54; PULSE 59; TEMP 98
--- NOTE | 2019-10-11 11:30 | NUR ---
Patient is sitting up in bed. She seems to be doing well this morning. She walked to the bathroom and did well. She just moves slowly. No complaints of pain at this time. She removed her pressure dressings. She stated they are usually changed twice a week. Explained there is no order for that at this time and her legs look very red and dry. Patients BLE are red and discolored/purple. No open adilene noted. No other changes at this time. Call light within reach.
[2019-10-11 12:35] VITALS: BP 136/51; PULSE 56; TEMP 97.7
[2019-10-11 17:01] VITALS: BP 149/65; PULSE 63; TEMP 98
--- NOTE | 2019-10-11 18:00 | NUR ---
Patient is discharing to [facility]. All belongings packed up and sent over. Report given to Ca PORTILLO. INT discontinued.
[2019-10-11] MEDS ORDERED: BENADRYL E2.5 MG/1 M PO (18:27)
[2019-10-11] MEDS ORDERED: BETAMETHASONE D15 G1 TP (18:28)
[2019-10-11] MEDS ORDERED: TOPROL XL 25MG25 MG PO (18:32)
[2019-10-11] MEDS ORDERED: OMNICEF 300MG300 MG PO (18:35)
[2019-10-11] MEDS ORDERED: COLACE 100100 MG/CAP PO (18:35)
[2019-10-11] MEDS ORDERED: NOVOLOG 100U100 U/M1 SQ (18:36)
[2019-10-11] MEDS ORDERED: TYLENOL 325MG325 MG PO (18:37)
== END 2019-10-11 17:38 | DRG 690 ==
LOC: COL.ER 12:19 → MEDICAL 16:38
PROVIDERS: Emergency Medicine; Nurse Practitioner Family; Physician Assistant; ADMIT Internal Medicine
DX: N39.0 Urinary tract infection, site not specified (principal); Z95.1 Presence of aortocoronary bypass graft; I25.10 Atherosclerotic heart disease of native coronary artery without angina pectoris; G40.909 Epilepsy, unspecified, not intractable, without status epilepticus; H35.30 Unspecified macular degeneration; E03.9 Hypothyroidism, unspecified; N18.9 Chronic kidney disease, unspecified; W19.XXXA Unspecified fall, initial encounter; M25.561 Pain in right knee; M54.2 Cervicalgia; R53.81 Other malaise; E10.22 Type 1 diabetes mellitus with diabetic chronic kidney disease; Z90.710 Acquired absence of both cervix and uterus; Z90.89 Acquired absence of other organs; Z79.4 Long term (current) use of insulin
CPT/HCPCS: 99231-AI; 99239; A4216; J0696; J1815; J7030

== ENCOUNTER 2019-10-11 15:31 | Inpatient (IN) | payer MEDICARE, BC ==
[~2019-10-11] VITALS: Ht 152.4 cm; Wt 71.5 kg
[~2019-10-11 15:31] MED LIST changes: +LOPRESSOR 225 MG/TAB PO
[2019-10-11 18:07] VITALS: BP 152/55; PULSE 55; TEMP 97.8
[2019-10-11 18:17] VITALS: BP 152/55; PULSE 51; TEMP 97.8
[2019-10-11] MEDS ORDERED: BENADRYL E2.5 MG/1 M PO (18:27)
[2019-10-11] MEDS ORDERED: BETAMETHASONE D15 G1 TP (18:28)
[2019-10-11] MEDS ORDERED: TOPROL XL 25MG25 MG PO (18:32)
[2019-10-11] MEDS ORDERED: COLACE 100100 MG/CAP PO (18:35)
[2019-10-11] MEDS ORDERED: OMNICEF 300MG300 MG PO (18:35)
[2019-10-11] MEDS ORDERED: NOVOLOG 100U100 U/M1 SQ (18:36)
[2019-10-11] MEDS ORDERED: TYLENOL 325MG325 MG PO (18:37)
--- NOTE | 2019-10-11 19:30 | NUR ---
Bedside report with LINDSEY Barraza to LINDSEY Monteiro. Called TERRAZZO ROLLER to assist pt to BR. Reported to Thania that 5-pg admission and allergies still need done.
--- NOTE | 2019-10-11 19:55 | NUR ---
Upon assessment patient is up sitting on the side of the bed. Denies significant pain, rating at 2/10. Denies n/v. Tylenol, benadryl and miralax given per patient request. Patient reports having issues with constipation, but was able to have a BM today. Wears 2.6 L oxygen via NC at home QHS. No othere needs reported/observed at this time.
[2019-10-12 05:43] VITALS: BP 137/54; PULSE 55; TEMP 97.6
--- NOTE | 2019-10-12 07:02 | NUR ---
Patient report given at bedside to LINDSEY Penaloza and LINDSEY Pond. Patient assisted to chair with walker and gait belt for breakfast, tolerated well. Patient was up many times throughout the night to use the bathroom, appeared to sleep well between interuptions. Tylenol was given this morning at 0625 for neck and right leg pain. Patient reports that she is starting to itch again, Bendaryl is order Q6H with next dose not til around 0800. No other needs reported/observed.
--- NOTE | 2019-10-12 07:34 | NUR ---
Bedside report from LINDSEY Monteiro with LINDSEY Barraza orientee to provide cares for pt. Pt awoke for breakfast, staff assisted to recliner, chair alarm on, call lt in reach, gripper socks in place.
--- NOTE | 2019-10-12 07:35 | NUR ---
REPORTS RECEIVED FROM WATCH TECHNICIAN NURSE. PATIENT COMPLAINTS OF ITCHING SKIN, WANTING BENADRYL SOON IT'S AVAILABLE TO GIVE. ALSO COMPLAINING OF PAIN TO NECK/ACROSS SHOULDERS AND DOWN RIGHT LEG AND WANTING TYLENOL WHEN IT'S NEXT AVAILABLE. REQUIRES MAX ASSIST WITH REPOSITIONING FROM LYING TO SIT AT SIDE OF BED AND MOD ASSIST FROM SIT TO STAND. OBSERVED TRANSFERS FROM BED TO CHAIR WITHOUT PROBLEM ONCE PATIENT WAS STANDING/GAIT BELT ON AND USING FRONT WHEELED WALKER. CALL LIGHT/WATER WITHIN PATIENT'S REACH. CHAIR ALARM ACTIVATED. BED IN LOW POSITION.
--- NOTE | 2019-10-12 08:52 | NUR ---
PATIENT REFUSES TO WEAR SCD DUE TO PATIENT C/O BLE DISCOMFORT WITH CONTACT STIMULATION TO SKIN OF BLE. HAS HISTORY OF VERY DRY/ITCHING SKIN AND OBSERVED SMALL SCABBED SKIN AREAS TO DELL PATEL AREA WITH BLE SKIN PURPLISH/RED SKIN DISCOLORATION. PATIENT PLACED BACK IN BED AFTER TOILETING, PASSED VERY SMALL FORMED STOOL. OBSERVED SWELLING TO ANAL AREA, NO BLEEDING OBSERVED FROM ANAL AREA.
--- NOTE | 2019-10-12 11:25 | NUR ---
AGREED TO WEAR SCD WITH CLOTH TO PROTECT SKIN FROM BECOMING IRRITATED WITH SCD WRAP.
[2019-10-12 12:12] VITALS: BP 156/71; PULSE 95
--- NOTE | 2019-10-12 12:22 | NUR ---
At 1151 BG 61; notified Christi RN, pt requested to toilet, pt was assisted to BSC for feeling dizzy, returned to bed, had drank 240mL OJ, then at 1210 BG 51; called Shreya, surgical charge nurse and called hospitalist Dr. Brennan and informed him of pt's condition including that pt started shaking all over, remained alert and responsive, some AMS. Shreya arrived with Glucose Gel 15gm and pt able to take. VSS. Unsuccessful IV attempt and pt did not want an IV started. Pt also given PB and grahams, another 120 ml OJ and set up for eating pork sandwich. At 1226 BG 94.
[2019-10-12 12:24] VITALS: BP 157/68; PULSE 93
--- NOTE | 2019-10-12 12:49 | NUR ---
Plan: To Return home. SM reported that her daughter Kristi lives down stairs and serves as care [phone]. SM reported that EMR contact is Dutch Weiss [phone], and she does not have a DPOA. Assess: Sw met with patient in her hospital room. Patient reports that she uses a walker, cand(she does not like the cane), and a crutch. Patient reports that her PCP is Dr. Cardona, and she gets her medications from [facility] with no complications. SM reported having any upcoming appt this Sunday with Dr. Whitman. Pt reported having HH care through [facility] previously, and that she would like to have assistance with housework. Action: No other concerns currently identified. Patient was educated on community resources and supports and provided for homecare services.
--- NOTE | 2019-10-12 12:49 | NUR ---
PATIENT INFORMED IV SITE MIGHT STILL BE CONSIDERED WITH PATIENT NOT OFFERING ANSWER TO REFUSE OR ACCEPT CURRENTLY. EATING SCHEDULED LUNCH MEAL. VOIDED PER BEDPAN WHILE STILL TAKING HYPOGLYCEMIC TREATMENTS, URINE CLEAR/LIGHT YELLOW.
--- NOTE | 2019-10-12 13:02 | NUR ---
Patient has finished her lunch tray, reports feeling much better. Blood sugar 115. She reports her sugar normally runs in the 150s.
--- NOTE | 2019-10-12 14:19 | NUR ---
Dr. Jesus rounded on pt, informed him of Dr. Brennan's TORB and Dr. Jesus negated order for DW50 IV.
[2019-10-12 16:46] VITALS: BP 147/52; PULSE 63; TEMP 97.5
--- NOTE | 2019-10-12 17:28 | NUR ---
Pt in chair for supper, provided fresh ice water per pt request. Pt alert, pleasant. Reported BG to LINDSEY Barraza
--- NOTE | 2019-10-12 18:00 | NUR ---
OBSERVED FOLLOW UP FSBS @ 1255 OF 115, PATIENT WITH NO COMPLAINTS, UP WITH ASST TO BATHROOM. FSBS @ 1448 OF 260 AND @ 1646 OF 360 OBSERVED AFTER PATIENT HAD ALREADY EATEN.
--- NOTE | 2019-10-12 18:40 | NUR ---
REPORT GIVEN TO GASOLINE CATALYST OPERATOR NURSE, PATIENT RESPONDS APPROPRIATELY TO QUESTIONS, WITH C/O OF NECK PAIN AT TIMES. CALL LIGHT WITHIN REACH, RESTING IN BED.
--- NOTE | 2019-10-12 19:38 | NUR ---
SUPPER FSBS LEVEL REPORTED TO DISTANCE LEARNING PROGRAM COORDINATOR NURSE, AND OF MISSED DOSE WITH PATIENT ALREADY HAVING EATEN.
--- NOTE | 2019-10-12 20:15 | NUR ---
SHIFT BEDSIDE REPORT FROM TATIANNA PORTILLO EARLIER. PT RESTING IN BED. A&OX4. PLANT TAXONOMIST REPORTED ACCUCHECK 516. PT ASYMPTOMATIC. NOTIFIED LAB FOR STAT VENOUS BS. PT VERY DIFFICULT STICK FOR LAB. AFTER OBTAINING LAB, GAVE NOVOLOG INSULIN 14 UNITS SQ PER PROTOCOL. GAVE SHEDULED LEVEMIER ALSO. PT IS A VERY BRITTLE DIABETIC. PT CONCERNED SHE DOES NOT WANTS BS <250. REASSUSRED PT STAFF WOULD MONITOR BS FREQUENTLY. CALL LIGHT IN REACH. BED ALARM SET.
--- NOTE | 2019-10-12 20:42 | NUR ---
LAB CALLED. VENOUS BS WAS 550. WILL CONTINUE TO MONITOR.
--- NOTE | 2019-10-12 20:59 | NUR ---
NOTIFIED TABATHA MACK REGQADING BS 516 AND PROTOCOL WAS FOLLOWED. RECHECK ACCUCHECKIN 4HR.
--- NOTE | 2019-10-12 22:12 | NUR ---
BS NOW 458. PT C/O PATEL ITCHY ALL OVER. SKIN VERY DRY WITH TOUGH TEXTURE. MMMMMMMMMMMMMMMMMMMMMMMMMMMMMMMMMMMMMMMM MMMMMMMMMMMMMMMMMMMMMMMMMMMMMMMMMMMMMMMMMMMMMMMMMMMMMMMMMMMMMMMMMMMMMMMMMMMMMM MMMMMMMMMMMMMMMMMMMMMMMMMMMMMMMMMMMMMMMMMMMMMMMMMMMMMMMMMMMMMMMMMMMMMM BS 458 NOW. PT C/O GENERALIZED EXCESSIVE ITCHING TO LOW BACK AND LEGS. SEE MAR FOR BENADRYL GIVEN. LOTION TO BACK AND LEGS. PT AXIOUS. O2 2.5L NC STARTED IN PLACE OF CPAP. PT RELATES SHE DOES NOT TOLERATE CPAP AT ALL. UP TO BSC VOIDING CLEAR YELLOW URINE. PT WANTED TO SIT UP IN RECLINER. CHAIR ALARM SET. NOTABLE TREMORS TO EXTREMITIES. DOES NOT APPEAR TO BE SEIZURE ACTIVITY. PT CONVERSIVE AND FLOOLOWS DIRECTIONS. JUST VERY ANXIOUS. MORE LOTION APPLIED. CALL LIGHT IN REACH.
--- NOTE | 2019-10-12 23:40 | NUR ---
BS NOW 363. IMPROVING. CONTIUES SITTING IN CHAIR. CALM. PT THANKFUL SHE IS FEELING BETTER.
[2019-10-13 03:09] VITALS: BP 142/68; PULSE 94; TEMP 97.5
--- NOTE | 2019-10-13 03:14 | NUR ---
BS 235. AWAKE READING IN BED. PT REQUEST ACCUCHECK TO BE DONE AT 0400 BECAUSE ONCE HER BS GETS BELOW 200 IT DROPS FAST. WILL CONTINUE TO MONITOR.
--- NOTE | 2019-10-13 06:19 | NUR ---
PT BS 251 AT THIS TIME. PT DOZING. NO RESP DISTRESS.
[2019-10-13 06:20] LABS: INR 1.3 (0.8-3.0)
--- NOTE | 2019-10-13 12:28 | NUR ---
Patient resting in recliner at this time, call light in reach and alarm is set. Patient was a one assist with her walker and gait belt. Patient reporting pain 8/10 and takes Tylenol. Will continue to monitor.
--- NOTE | 2019-10-13 13:08 | NUR ---
Warfarin Initial Dosing Pharmacy Note Ordering Provider: Max Mancuso MD Indication: Atrial fibrillation LABS: INR 1.3 Recommendation: Warfarin was restarted on 10/10/19 with Warfarin 2 mg po qHS. As INR subtherapeutic after 3 days of Warfarin at home dose, will increase Warfarin to 3 mg po qHS. Pharmacy sylvester continue to monitor daily INR levels. Home Regimen: Warfarin 2 mg po qHS
--- NOTE | 2019-10-13 15:38 | NUR ---
SW met with the patient to introduce oneself and to follow up. The patient states that she is doing okay. States that her daughter is a patient at [facility] right now and feels limited on what she can do. A meeting was scheduled with the patient for tomorrow at 1300. The patient had no other questions or concerns for SW at this time. SW to continue to follow.
[2019-10-13 18:20] VITALS: BP 147/51; PULSE 71; TEMP 97.4
--- NOTE | 2019-10-13 18:25 | NUR ---
Patient's family day care provider from home wanted to know where patient's transmitter went to her diabetic insulin device that was planted in her arm when she arrived to the medical department last week. The transmitter is seperate and needed to be saved for three months. This nurse asked Medical Department if they have any idea where it would be, they (Stefano) and (Charge Nurse) did not know where it would be. Armored Cable Machine Operator López was called and she was not aware of what would have happened to it either.
--- NOTE | 2019-10-13 20:00 | NUR ---
BIMS DONE BY [facility]OR SAFETY JUDGEMENT AND CAN BE IMPULSIVE. FORGETFUL REGARDING IPR SAFETY RULES. ORIENTED AND PLEASANT. C/O NECK AND RT SHOULDER DISCOMFORT. LEVEL 8. SEE MAR FOR TYLENOL GIVEN. KPAD IN PLACE. ACCUCHECK 348. SEE JESSE RAUSCH FOR PT'S SSI AND LEVIMEIR INSULINS. PT VERY STIFF AND WEAK. MOVES VERY SLOWLY WITH OWN 3 WHEELED WALKER. . AT TIMES SHUFFLES FEET. VENOUS STASIS NOTED TO BILAT LE. DEEP PURPLE IN COLOR. +2 EDEMA NOTED. SCD'S PLACED. FEET ELEVATED. BENADRYL 12.5 LIQ GIVEN PER REQUEST. CALL LIGHT IN REACH. BED ALARM SET.
--- NOTE | 2019-10-13 21:00 | NUR ---
PT HAS LIMITED ROM TO NECK. USES KPAD/TYLENOL FOR PAIN.
--- NOTE | 2019-10-14 03:29 | NUR ---
PT WANTS TO IF SHE CAN BE INDEPENDENTIN ROOM. EXPLAINED PROCESS. PT IS ALSO UNABLE TO LIFT OWN LEGS INTO BED. POOR SAFETY JUDGEMENT. PT UNHAPPY. TOOK TOO LONG FOR ASSIST TO BR. REASSURED PT.
--- NOTE | 2019-10-14 03:31 | NUR ---
PT C/O NECK AND SHOULDER PAIN. REFUSES KPAD. SEE MAR FOR TYLENOL GIVEN. ASSISTED TO REPOSITION. REFUSES SCD'S- PT TOOK OFF. BILAT LEGS REMAINS DISCOLORED AND EDEMATOUS. REFUSE TO FLOAT BLE ON PILLOWS. CALL LIGHT IN REACH. BED ALARM SET.
[2019-10-14 05:11] VITALS: BP 126/47; PULSE 57; TEMP 98.1
[2019-10-14 06:38] LABS: INR 1.2 (0.8-3.0); PROTHROMBIN TIME 13.5 SECONDS (9.7-12.8)
--- NOTE | 2019-10-14 07:01 | NUR ---
REPORT RECEIVED FROM AUTO PAINTER HELPER NURSEANUJ. CALL LIGHT/WATER WITHIN PATIENT'S REACH. CURRENTLY SITTING AT SIDE OF BED EATING BREAKFAST.
--- NOTE | 2019-10-14 13:28 | NUR ---
RESTING IN CHAIR, UP TO BATHROOM NEEDED W/X1 ASST/GAIT BELT/WHEELED WALKER FROM HOME. CALL LIGHT/WATER WITHIN REACH. HAS RAJESH CRACKERS AND PEANUT BUTTER PER PATIENT REQUEST FOR PRN BETWEEN MEAL SNACKS.
--- NOTE | 2019-10-14 13:47 | NUR ---
Admission QIM scores were reviewed by the team. Code of 4 chosen for toilet hygiene was determined by team discussion to be the most usual performance before interventions for this patient during the assessment period. Code of 1 chosen for putting on/taking off footwear was determined by team discussion to be the most usual performance for this patient during the assessment period. Code of 3 chosen for lying to sitting on side of bed was determined by team discussion to be the most usual performance before interventions for this patient during the assessment period.--Bushra Juares, PD
--- NOTE | 2019-10-14 16:14 | NUR ---
SW attended a team meeting with the patient. Also present was IPR Director, PT, OT, & ST. IPR Director, Bushra, started by explaining the purpose of the meeting. PT/OT/ST discussed how the patient is progressing and how the plan is to re-eval tomorrow, 10/15. The patient was in agreeance to this. She reports that her goals are to be able to get up and down a flight of stairs and to work on math and writing. She states that she is unsure if her daughter will be back home by the time she discharges, due to her daughter now staying with her grandson after discharging from [facility]. The patient was also interested in obtaining [employer] phone number to check the expiration date on her license. JANETTE provided the patient with that phone number. The team answered all patient's questions. SW to continue to follow.
[2019-10-14 16:31] VITALS: BP 149/43; PULSE 58; TEMP 96.4
--- NOTE | 2019-10-14 16:42 | NUR ---
Warfarin Follow-up Pharmacy Note Current regimen: Warfarin 3 mg po qHS LABS: INR 1.2 Changes in therapy: Increase Warfarin to 4 mg po qHS. Anticipate will need to decrease dose back down once INR starts to increase to therapeutic range. Pharmacy will continue to monitor daily INR levels.
--- NOTE | 2019-10-14 22:30 | NUR ---
Shift assessment complete. Patient in bed, states she is uncomfortable. Ambulated to BR with walker and assist x1. Ambulated to chair. Prn tylenol given per patient request. Prn benedryl given per pt request. Denies further needs at this time. Will continue to monitor.
[2019-10-15 03:09] VITALS: BP 149/72; PULSE 67; TEMP 97.3
[2019-10-15 07:27] LABS: BASO # 0.1 (0.0-0.2); BASO % 0.9 % (0.0-2.0); EOS # 0.2 (0.0-0.7); EOS % 2.7 % (0-4.0); GRAN # 4.5 (1.4-6.5); GRAN % 58.9 % (42.2-75.2); HEMOGLOBIN 10.6 g/dl (12.5-16.0); MEAN CELL VOLUME 84 fl (80.0-100.0); MEAN CORPUSCULAR HEMOGLOBIN 28 pg (27.0-31.0); MEAN CORPUSCULAR HGB CONC 33 g/dl (33.0-37.0); MEAN PLATELET VOLUME 9.5 fl (7.4-10.4); MONO # 0.8 (0.1-0.6); PLATELET COUNT 348 K/mm3 (130-400); RED BLOOD COUNT 3.84 M/mm3 (4.10-5.30); REDCELL DISTRIBUTION WIDTH-CV 13.8 % (11.5-14.5)
[2019-10-15 07:37] LABS: HEMATOCRIT 32.1 % (37.0-47.0)
[2019-10-15 07:41] LABS: CALCIUM 7.9 mg/dL (8.4-10.2); CREATININE, serum 1.54 (0.52-1.25); MAGNESIUM 1.9 mg/dL (1.6-2.3); POTASSIUM 3.8 mmol/L (3.4-5.0)
[2019-10-15 07:49] LABS: INR 1.2 (0.8-3.0); PROTHROMBIN TIME 13.9 SECONDS (9.7-12.8)
--- NOTE | 2019-10-15 09:32 | NUR ---
Patient reporting some dizziness when working with PT. Blood sugar checked and is stable. Will continue to monitor.
--- NOTE | 2019-10-15 09:37 | NUR ---
Call placed to Dr. Alfaro office per patient request to cancel appointment with Dr. Whitman that was scheduled for tomorrow, 10/16/19. This nurse spoke with Dr. Alfaro' nurse and she confirmed that she would cancel that appointment and to have patient reschedule that visit after being discharged from [facility]. This will be communicated to patient.
--- NOTE | 2019-10-15 16:21 | NUR ---
JANETTE met with the patient to present and discuss the IPR Team Conference Note and reviewed the team's recommendation of a discharge for next Sunday, 10/22, with home health PT/OT/ST. The patient is in agreeance to this and states how she already has home health set up through [facility]. JANETTE presented the patient with [employer] list of home health agencies in [place]. The patient chose [facility]. JANETTE contacted and faxed updates to [facility]. [facility] is able to accept the patient back for services. JANETTE also assisted the patient with contacting the DMV. The patient had no other questions or concerns for JANETTE at this time. JANETTE to continue to follow.
--- NOTE | 2019-10-15 18:13 | NUR ---
Patient resting in recliner at this time, call light in reach and alarm is on. Patient complaining of knee pain and wanted to be seen by ortho. See new order for ortho consult per Dr. Mancuso.
[2019-10-15 18:17] VITALS: BP 118/47; PULSE 75; TEMP 97.7
--- NOTE | 2019-10-15 19:24 | NUR ---
Ortho will be called tomorrow morning for a consult. Patient reports that pain is in the medial portion of knee and radiates to calf muscle. It usually lasts for up to 3 to 4 minutes when it does occur. Also having pain to left neck and shoulder following her two falls prior to coming to [facility]. Patient would be interested in getting a steroid injection. Will continue to monitor.
--- NOTE | 2019-10-15 21:00 | NUR ---
PT TO BR WHEELED WALKER/ DIRECTOR OF USER EXPERIENCE. PT VERY SLOW AND TAKES VERY SMALL STEPS. UNSTEADY. POOR SAFETY AWARENESS. VOIDED THEN TO BED. DENIES URINARY BURNING, FLANK PAIN OR FEVER. STILL ON OMNICEFF FOR UTI. O2 ST HS STARTED AT 2.5L PER NC. NECK STFF WITH LIMITED ROM. KPAD OFFERED, SEE MAR FOR TYLENOL GIVEN. BLE EDEMADOUS +3. COBAN LEG WRAPS IN PLACE. ACCUCHECK 278- SEE MAR FOR SSI GIVEN. ENC ELEVATION. CALL LIGHT IN REACH BED ALARM SET.
--- NOTE | 2019-10-16 04:48 | NUR ---
PT RESTLESS. AMB TO BR. SMALL SHUFFLING GAIT WITH 3 WHEELED WALKER. FORGETS TO USE BRAKES. VOIDED. AMB IN [place] AND OBTAINED STANDING SCALE WEIGHT OF 71.1. BACK TO ROOM, ASSISTED INTO BED. READING BOOK. O2 IN PLACE AT 2 LNC. NO RESP DISTRESS. CALL LIGHT IN REACH. BED ALARM SET. PT WANTED COBAN LEG WRAP OFF EARLIER AROUND 0230. REMOVED. ENC ELEVATION FEET.
[2019-10-16 06:00] VITALS: BP 141/57; PULSE 73; TEMP 97.6
[2019-10-16 07:46] LABS: INR 1.4 (0.8-3.0); PROTHROMBIN TIME 16.7 SECONDS (9.7-12.8)
--- NOTE | 2019-10-16 14:39 | NUR ---
Patient reports that she would be fine with staying with Tylenol hoping to have it changed from Q 6 hours to Q 4 hours. See new orders per Dr. Mancuso to change Tylenol to every 4 hours.
--- NOTE | 2019-10-16 15:41 | NUR ---
Patient was seen by Terri Roberson and gave patient a steroid injection to right knee. Patient tolerated shot. Will continue to monitor.
[2019-10-16 16:28] VITALS: BP 157/59; PULSE 58; TEMP 97.8
--- NOTE | 2019-10-16 20:00 | NUR ---
PT SITTING IN RECLINER. VISITING WITH DAUGHTER SARIAH. VERY SUPPORTIVE. PT ASKS FOR TYLENOL AND BENADRYL. ITCHING AND NECK PAIN. PT REPORTS RT KNEE FEEING BETTER ALREADY. RT KNEE BANDAID CDI FROM STEROID INJECTION. GAUZE AND COBAN WRAP TO BLE FOR EDEMA. CALL LIGHT IN REACH. CHAIR ALARM SET. PT CAN BE FORGETFUL AT TIMES. REQUESTED BENEADRYL LIQ EARLIER THEN PT REQUESTED IT.
--- NOTE | 2019-10-16 20:20 | NUR ---
Patient attended all therapies today. Patient allowed this nurse to wrap bilateral lower legs and she elevated her legs for about an hour this afternoon. Patient decided that tylenol was okay for pain managment since she has so many allergies. Patient was a one assist with walker to the bathroom. She walks very slow, but was able to wipe herself independently. She has a scabbed area to her upper left buttock cheek - Mepilex was applied. Will continue to monitor. 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 Kitchen staff said they would bring a sandwich and some fruit up before they close the kitchen this evening. Unsure if this HS snack will need to be called in each night or not. This was communicated to the night nurse to pass on to day nurse.
[2019-10-17 05:13] VITALS: BP 167/72; PULSE 65; TEMP 97.3
--- NOTE | 2019-10-17 05:22 | NUR ---
ACCUCHECK 548. HAD LATE SUPPER AND SNACK LAST NIGHT. NO S/S HYPERGLYCEMIA.
[2019-10-17 07:34] LABS: INR 1.8 (0.8-3.0); PROTHROMBIN TIME 21.4 SECONDS (9.7-12.8)
--- NOTE | 2019-10-17 07:58 | NUR ---
REPORT RECEIVED FROM NIGHT NURSE. PATIENT ALREADY UP IN CHAIR, CALL LIGHT/WATER WITHIN PATIENT'S REACH. REPORTS STEROID INJECTION TO RIGHT KNEE HAS HELPED. NO OTHER NEEDS REPORTED AT THIS TIME.
--- NOTE | 2019-10-17 08:37 | NUR ---
INFORMED ONCALL HOSPITALIST, DR GARCIA, ON FOLLOW UP FSBS, NO NEW ORDERS GIVEN HE WILL SEE PATIENT.
--- NOTE | 2019-10-17 12:22 | NUR ---
STATES HER PAIN TO KNEE IS IMPROVING BUT STILL HAS NECK PAIN "BUTIT'S STILL GETTING BETTER"
--- NOTE | 2019-10-17 14:27 | NUR ---
WORKING WITH PT WITH NO FURTHER COMPLAINTS OR NEEDS. BM PASSED. CALL LIGHT/WATER TO BE PLACED WITHIN PATIENT'S REACH AFTER DONE WITH PT.
[2019-10-17 15:58] VITALS: BP 120/60; BP 84/57; PULSE 100; PULSE 64; TEMP 98.3
--- NOTE | 2019-10-17 16:09 | NUR ---
JANETTE met with the patient to follow up. The patient reports that things are going and that she has been dozing off this afternoon. She states that her daughter, Kristi, is still staying with her grandson and that she thinks that Kristi will still be staying with her grandson when she discharges on Sunday. Her grandson lives in [place]. She states she will be at home alone, unless the young man (Matilda) who she rented a room to, will still be there. She states that Matilda is very helpful and a good man. Has never done anything to make her feel uncomfortable. She did inform SW that she has been involved with [facility]PS in the past, when her daughter (Kristi), went [facility]. The patient had concerns with getting a hold of the DMV in [place]. SW assisted the patient with contacting the DMV in [place]. All her questions were answered from the DMV in [place]. The patient had no other questions or concerns for SW at this time. JANETTE to continue to follow to ensure a safe discharge.
--- NOTE | 2019-10-17 16:28 | NUR ---
CLARIFIED WITH DR GARCIA, TO CONTINUE WITH LAB DRAWS IF FSBS >450/FOLLOW INSULIN SLIDING SCALE/NOTIFY PROVIDERS.
--- NOTE | 2019-10-17 18:59 | NUR ---
REPORT GIVEN TO CAR SALESMAN NURSE, JUNE, RESTING WITH EYES CLOSED, DOES NO AROUSE. PATIENT SITTING UP IN CHAIR WITH CALL LIGHT/WATER WITHIN REACH.
--- NOTE | 2019-10-17 20:30 | NUR ---
HS meds along with SSI reviewed and given. Sits up in recliner. Dr. Mancuso notified of accu check 496 and new order received to give an extra 4 units novolog in addition to SSI. Order received no need to do stat glucose lab draw at this time. Patient up standby assist to the bathroom and manages all toileting tasks/undresses and dresses self in gown for the night and sits up in recliner. Snack of grahams and peanut butter given.
--- NOTE | 2019-10-17 22:00 | NUR ---
Benadryl given to aid with sleep along with tylenol for pain.
--- NOTE | 2019-10-17 23:20 | NUR ---
Dr. Mancuso notified of patients accu check 480. Orders received to give total of 20 units novolog now and if >400 next accu-check to give 20 units novolog total as well. No venous blood draws needed per Dr. Mancuso.
--- NOTE | 2019-10-18 02:08 | NUR ---
Reports 8/10 neck pain and tylenol given. Patient just returned from the bathroom.
--- NOTE | 2019-10-18 04:15 | NUR ---
ACCU CHECK 173 AND SSI GIVEN 4 UNITS. REPORTS SLEPT FOR A COUPLE OF HOURS FOLLOWING TYLENOL EARLIER. REQUESTS BENADRYL FOR ITCHING TO BACK AND GIVEN. REQUIRED MOD ASSIST TO SIT UP ON SIDE OF BED AND MAX ASSIST WITH LEGS INTO BED. KPAD TO NECK. UP TO VOID AROUND EVERY 2 HOURS.
--- NOTE | 2019-10-18 04:16 | NUR ---
Patient requests milk for snack and 3 oz of skim milk given. Patient concerned blood sugar may go low.
[2019-10-18 04:21] VITALS: BP 133/55; PULSE 64; TEMP 97.8
--- NOTE | 2019-10-18 06:28 | NUR ---
patient rests in bed with eyes closed. Respirations with ease.
--- NOTE | 2019-10-18 08:41 | NUR ---
Patient up to the bathroom, steady gait. voided, new brief on. Alert & oriented this am. Dressed with some assist. up to sink combed hair & brushed teeth. She did well with breakfast, awaiting group therapy & she is look forward to her sister coming to see her today.
[2019-10-18 10:19] LABS: INR 2.9 (0.8-3.0); PROTHROMBIN TIME 35.1 SECONDS (9.7-12.8)
--- NOTE | 2019-10-18 14:43 | NUR ---
Patient sitting up in chair, visiting with sister. good appetite. doing well.
[2019-10-18 16:52] VITALS: BP 1248/61; BP 128/61; PULSE 92; TEMP 98.5
--- NOTE | 2019-10-18 17:40 | NUR ---
Patient sitting up, eating dinner. blood sugars remain elevated. medicated per scale.
--- NOTE | 2019-10-18 19:06 | NUR ---
Patient dozing in chair. Bedside shift report received by Shreya PORTILLO.
--- NOTE | 2019-10-18 21:00 | NUR ---
HS meds all reviewed and given along with SSI. Requests miralax for constipation and given. Snack of prashanth cracker and peanut butter given for request. Tyenol given for neck and right knee pain.
[2019-10-19 03:40] VITALS: BP 152/52; PULSE 58; TEMP 97.3
--- NOTE | 2019-10-19 06:00 | NUR ---
Patient rests quietly in bed. Respirations with ease. 02 on 2lpnc.
--- NOTE | 2019-10-19 07:30 | NUR ---
Patient was a one person transfer to the toilet. Patient wiped herself independently and able to pull pants up and down on her own.
[2019-10-19 08:37] LABS: INR 4.1 (0.8-3.0)
--- NOTE | 2019-10-19 15:46 | NUR ---
Patient resting in recliner at this time, call light in reach and chair alarm on. Patient reporting pain 8/10 today due to headache and neck ache and given prn tylenol. Will continue to monitor. She was a one person transfer to the toilet with walker and gait belt.
[2019-10-19 17:21] VITALS: BP 138/50; PULSE 69; TEMP 98.3
--- NOTE | 2019-10-19 19:32 | NUR ---
Patient preferred to rest this shift. She is now walking with night nurse for a stroll around the [facility] and [facility]. She is a SBA with walking. Patient ate well and her neck pain was mildly controlled with Tylenol. The heating pad was effective. Patient denied any questions. Reported off to night nurse.
--- NOTE | 2019-10-19 21:41 | NUR ---
Pt doing ok. Ambulated in hallway about 100ft. x1 standby assist. 1 assist with night cares. took pm medicine with no problems. denies pain. no issues at this time. call light within reach, will continue to monitor
--- NOTE | 2019-10-20 03:09 | NUR ---
Pt has been awake most of night. Requests to go to the bathroom refquently. Has 02 on at 2L. Eating prashanth crackers and watching tv. No concerns at this time. Call light within reach, will continue to monitor
[2019-10-20 03:45] VITALS: BP 139/46; PULSE 54; TEMP 98
[2019-10-20 07:35] LABS: INR 3.5 (0.8-3.0)
--- NOTE | 2019-10-20 07:43 | NUR ---
Bedside Report from LINDSEY Damon. Pt in chair, turned alarm on. Took meds with water. Reminded pt to wait for staff to assist with amb to BR, ANNIE Frazier assisted. No SSI required. Pt alert, pleasant, tylenol and benadryl PRNs given.
[2019-10-20 07:49] LABS: CALCIUM 7.7 mg/dL (8.4-10.2); CREATININE, serum 1.68 (0.52-1.25); MAGNESIUM 2.4 mg/dL (1.6-2.3); POTASSIUM 4.6 mmol/L (3.4-5.0)
--- NOTE | 2019-10-20 10:10 | NUR ---
Pt reports dizziness, denies numbness/tingling. Shoes in place. Call lt in reach.
--- NOTE | 2019-10-20 11:00 | NUR ---
Removed mepilex from coccyx, 0.5 cm scab, applied steroid cream to BLE after pt showered, kerpete and litoand per pt's request just above ankles and below knees. Pt clinton well.
--- NOTE | 2019-10-20 12:26 | NUR ---
Pt to chair almost done eating supper. Chair alarm on. Reminded pt to call after therapy if she needs pain meds.
[2019-10-20 15:25] VITALS: BP 147/48; PULSE 56; TEMP 97.4
--- NOTE | 2019-10-20 20:34 | NUR ---
Bedside report to LINDSEY Pang. Pt in chair with alarm on, call lt in reach. Wraps to BLE intact. On RA.
--- NOTE | 2019-10-21 03:59 | NUR ---
Patient has rested well throughout the night. Complains of pain to neck and requests Tylenol. This was administered. Patient up to the bathroom multiple times throughout the night and requires stand-by assist from staff. Walker and gait belt utilized. Patient had bedtime snack and has prashanth crackers at bedside. Denies any further needs. Will continue to monitor.
[2019-10-21 04:25] VITALS: BP 151/66; PULSE 56; TEMP 98.1
--- NOTE | 2019-10-21 06:50 | NUR ---
awake and up in chair, bedside shift report received from LINDSEY Pang
[2019-10-21 07:12] LABS: INR 1.9 (0.8-3.0); PROTHROMBIN TIME 23.1 SECONDS (9.7-12.8)
--- NOTE | 2019-10-21 07:50 | NUR ---
had breakfast and tolerated well, full assessment completed, see interventions for further info, assisted up to bathroom
--- NOTE | 2019-10-21 08:44 | NUR ---
ambulating in [place] with physical therapy
--- NOTE | 2019-10-21 09:10 | NUR ---
back to room after therapy and c/o annettek pain 09/04, states when she was doing exercises in bed with therapist, rolling from side to side, she felt something kind of pop on right side of neck and felt like she was looking into a kaleidescope, medicated with tylenol 650mg, encouraged to rest in chair with lights off until occupational therapy and see how she feels
--- NOTE | 2019-10-21 09:40 | NUR ---
enteredd room and she is up and in bathroom with occupational therapy to take a shower, when asked if she was better she stated no, has agreed to work with therapy and take a shower, no moaning and some grimacing with movement
--- NOTE | 2019-10-21 10:16 | NUR ---
resting in chair after shower with lights off, eyes closed and resp quiet and easy, no grimacing noted, is just quiet in the chair
--- NOTE | 2019-10-21 11:26 | NUR ---
speech therapy in working with patient, states she is feeling better and vision is also better
--- NOTE | 2019-10-21 11:56 | NUR ---
up in chair and eating lunch, denies needs
--- NOTE | 2019-10-21 13:16 | NUR ---
therapy in to work with patient, c/o neck pain again and medicated with tylenol 650mg po, will go outside with therapist
--- NOTE | 2019-10-21 15:25 | NUR ---
up in chair, told VESSEL ORDINARY SEAMAN she just "felt off", blood sugar obtained and it was 154, spoke with patient and she knows her blood sugar is OK now and not sure what she would feel off, probably her head and neck discomfort, will recheck blood sugar though around 1600, patient and son tapan understanding
[2019-10-21 16:14] VITALS: BP 144/55; PULSE 58; TEMP 97.5
--- NOTE | 2019-10-21 17:10 | NUR ---
sitting up in chair eating supper,
--- NOTE | 2019-10-21 18:15 | NUR ---
up and about in room independently, had supper and tolerated well
--- NOTE | 2019-10-21 18:40 | NUR ---
bedside shift report given to LINDSEY Penaloza
--- NOTE | 2019-10-21 19:05 | NUR ---
REPORT RECEIVED FROM DAY SHIFT NURSE. PATIENT SITTING UP IN CHAIR WITH CALL LIGHT/WATER PITCHER WITHIN REACH.
--- NOTE | 2019-10-21 22:37 | NUR ---
REPORTS CONTINUED NECK PAIN THAT STARTED WHEN SHE GOT UP FOR PHYSICAL THERAPY THIS MORNING. AGREED TO APPLY HEAT TO AREA OF PAIN AND WAS GIVEN TYLENOL ORDERED WITH PATIENT WANTING TYLENOL AGAIN WHEN NEXT AVAILABLE. RESTING QUIETLY WITH EYES CLOSED WHILE SITTING UP IN CHAIR WITH BOTH FEET SLIGHTLY ELEVATED ON OVERBED TABLE LOWER BAR, PATIENT REFUSED OFFER OF LOW STOOL FOR RAISING BOTH FEET. REFUSED TO LAY DOWN DUE TO NECK PAIN.
--- NOTE | 2019-10-21 22:44 | NUR ---
CALL LIGHT WITHIN PATIENT'S REACH.
--- NOTE | 2019-10-21 23:29 | NUR ---
RESTING WITH EYES CLOSED WHILE SITTING UP IN CHAIR WITH UNRESTRICTED BREATHING OBSERVED.
--- NOTE | 2019-10-22 02:11 | NUR ---
RESTING WITH EYES CLOSED, DOES NOT AWAKEN WITH ENTERING OF ROOM, CONTINUES TO SIT UP IN CHAIR. BREATHING OBSERVED UNRESTRICTED.
[2019-10-22 05:42] VITALS: BP 158/50; PULSE 51; TEMP 97.2
--- NOTE | 2019-10-22 07:29 | NUR ---
Patient resting in recliner at this time, call light in reach and independent in her room. Patient refused to have her blood drawn this AM due to pain. Takes Tylenol PRN. Will continue to monitor.
--- NOTE | 2019-10-22 09:18 | NUR ---
Patient had her blood drawn by lab and it was successful this time.
[2019-10-22 09:25] LABS: INR 1.3 (0.8-3.0); PROTHROMBIN TIME 14.8 SECONDS (9.7-12.8)
--- NOTE | 2019-10-22 10:17 | NUR ---
Call placed to Dr. Whitman's office to schedule a follow up appointment to address neck pain. Awaiting a return call.
--- NOTE | 2019-10-22 12:24 | NUR ---
Patient resting in recliner eating her lunch. Son was here this morning, just left to get something to eat and will return a little later.
--- NOTE | 2019-10-22 12:50 | NUR ---
Patient has an ortho appointment scheduled for 11/07/19 to address neck pain upon discharge.
--- NOTE | 2019-10-22 13:58 | NUR ---
Wrapped patients bilateral lower legs with kerlix and coban. Tolerated well. Currently has legs elevated to help with edema. Patient's bottom has completly healed. Observed no dryness or scabbed area.
[2019-10-22] MEDS ORDERED: NOVOLOG FLEX100 U/ML SQ ×2 (14:46)
[2019-10-22] MEDS ORDERED: DEMADEX 20MG20 M1 PO (14:46)
[2019-10-22] MEDS ORDERED: COUMADIN 3MG3 MG/TAB PO (14:47)
[2019-10-22] MEDS ORDERED: TOPROL XL 25MG25 MG PO (14:47)
[2019-10-22] MEDS ORDERED: BENADRYL E2.5 MG/1 M PO (14:48)
[2019-10-22] MEDS ORDERED: ZYRTEC5 MG PO (14:48)
--- NOTE | 2019-10-22 16:05 | NUR ---
Rubber And Pounder met with patient and reviewed IM form. Patient understands rights and provided signature. JANETTE placed original in chart and provided copy to patient. Patient to discharge today with [facility] . JANETTE contacted [place] answering service as office is closed today and advised patient to discharge today. JANETTE faxed discharge orders to [facility].
--- NOTE | 2019-10-22 17:42 | NUR ---
Patient Health Summary, Discharge Summary and Home meds printed and reviewed with patient and son. Stressed importance of follow up appointments. Called prescription for Potassium chloride to pharmacy of choice. Belongings gathered by LINDSEY/Mary and patient's son including 3 wheeled walker, glasses, clothes, cell phone, soil science teacher, Driposone Cream 2 tubes and bags. Patient transported via wheelchair by Jon and seatbelted for ride home. Patient and son denied questions.
== END 2019-10-22 16:45 | disposition home health service (06) | DRG 948 ==
PROVIDERS: Hospitalist; ADMIT Internal Medicine
DX: R53.81 Other malaise (principal); N39.0 Urinary tract infection, site not specified; B96.20 Unspecified Escherichia coli [E. coli] as the cause of diseases classified elsewhere; I25.10 Atherosclerotic heart disease of native coronary artery without angina pectoris; E10.22 Type 1 diabetes mellitus with diabetic chronic kidney disease; N18.3 Chronic kidney disease, stage 3 (moderate); H35.30 Unspecified macular degeneration; G40.909 Epilepsy, unspecified, not intractable, without status epilepticus; W18.30XA Fall on same level, unspecified, initial encounter; E03.9 Hypothyroidism, unspecified; F43.0 Acute stress reaction; M50.320 Other cervical disc degeneration, mid-cervical region, unspecified level; M17.11 Unilateral primary osteoarthritis, right knee; Y92.000 Kitchen of unspecified non-institutional (private) residence as the place of occurrence of the external cause; Z79.01 Long term (current) use of anticoagulants; Z79.4 Long term (current) use of insulin; Z95.1 Presence of aortocoronary bypass graft; Z86.73 Personal history of transient ischemic attack (TIA), and cerebral infarction without residual deficits; Z87.891 Personal history of nicotine dependence; Z88.2 Allergy status to sulfonamides; Z88.5 Allergy status to narcotic agent; Z88.6 Allergy status to analgesic agent
CPT/HCPCS: 99222-AI; 99232-AI; 99239; J1815; J3301

== ENCOUNTER 2020-02-05 08:55 | Inpatient (IN) | payer MEDICARE, BC ==
[~2020-02-05] VITALS: Wt 72.7 kg
[~2020-02-05 08:55] MED LIST changes: +BENADRYL E2.5 MG/1 M PO; +BETAMETHASONE D15 G1 TP; +COLACE 100100 MG/CAP PO; +COUMADIN 3MG3 MG/TAB PO; -KEPPRA 500MG500 MG PO; +NOVOLOG 100U100 U/M1 SQ; +OMNICEF 300MG300 MG PO; +TYLENOL 325MG325 MG PO; +ZYRTEC5 MG PO
[2020-02-05 09:48] LABS: BASO # 0.1 (0.0-0.2); BASO % 0.6 % (0.0-2.0); EOS # 0.1 (0.0-0.7); EOS % 1.2 % (0-4.0); GRAN # 6.7 (1.4-6.5); GRAN % 72.4 % (42.2-75.2); LYMPH # 1.7 (1.2-3.4); MEAN CELL VOLUME 91 fl (80.0-100.0); MEAN CORPUSCULAR HEMOGLOBIN 29 pg (27.0-31.0); MEAN CORPUSCULAR HGB CONC 32 g/dl (33.0-37.0); MEAN PLATELET VOLUME 9.7 fl (7.4-10.4); MONO # 0.7 (0.1-0.6); MONO % 7.4 % (1.7-9.3); PLATELET COUNT 297 K/mm3 (130-400); RED BLOOD COUNT 3.79 M/mm3 (4.10-5.30); REDCELL DISTRIBUTION WIDTH-CV 15.1 % (11.5-14.5)
[2020-02-05 09:52] LABS: HEMATOCRIT 34.4 % (37.0-47.0)
[2020-02-05 09:54] LABS: INR 1.2 (0.8-3.0)
[2020-02-05 09:58] LABS: ALANINE AMINOTRANSFERASE 15 U/L (4-34); ALBUMIN 4.2 gm/dL (3.5-5.0); ALKALINE PHOSPHATASE 189 U/L (50-136); ANION GAP 12 mmol/L (7-16); AST,SGOT 19 U/L (15-37); BILIRUBIN,TOTAL 0.3 mg/dL (0.0-1.0); BLOOD UREA NITROGEN 33 mg/dL (7-17); CALCIUM 8.3 mg/dL (8.4-10.2); CARBON DIOXIDE 21 mmol/L (22-30); CHLORIDE 106 mmol/L (98-107); CREATININE, serum 1.43 (0.52-1.25); POTASSIUM 4.9 mmol/L (3.4-5.0); SODIUM 139 mmol/L (137-145); TOTAL PROTEIN 7.2 gm/dL (6.4-8.2)
[2020-02-05 10:02] LABS: GLUCOSE 446 mg/dL (74-106)
[2020-02-05 10:09] LABS: TROPONIN-I < 0.012 ng/mL (0.000-0.035)
[2020-02-05 11:38] LABS: COLLECTION METHOD CATHETER
[2020-02-05 11:44] LABS: PH 6 (5-8); SQUAMOUS EPITHELIAL 0-2 /hpf; URINE APPEARANCE Clear; URINE BACTERIA None Seen /hpf; URINE BILIRUBIN Negative (NEGATIVE); URINE BLOOD 1+ (NEGATIVE); URINE COLOR Straw; URINE GLUCOSE 3+ (NEGATIVE); URINE KETONE Trace (NEGATIVE); URINE LEUKOCYTE ESTERASE Negative (NEGATIVE); URINE NITRATE Negative (NEGATIVE); URINE PROTEIN(semi-quant) Negative (NEGATIVE); URINE RBC 0-2 /hpf; URINE UROBILINOGEN Negative (NEGATIVE)
[2020-02-05 16:42] VITALS: BP 148/62; PULSE 101; TEMP 97.9
[2020-02-05] MEDS ORDERED: DEMADEX 20MG20 M1 PO (18:36)
[2020-02-05] MEDS ORDERED: GLUCOSAMINE/CHO1 CA4 PO (18:42)
[2020-02-05] MEDS ORDERED: COUMADIN 1MG1 MG/TAB PO (18:45)
[2020-02-05] MEDS ORDERED: COUMADIN 2MG2 MG/TAB PO (18:46)
[2020-02-05] MEDS ORDERED: HUMALOG PEN100 U/ML SQ (19:26)
[2020-02-05 20:31] VITALS: BP 139/83; PULSE 75; TEMP 97.7
[2020-02-05 23:51] VITALS: BP 141/59; PULSE 63; TEMP 97.7
[2020-02-06 02:29] VITALS: BP 126/47; PULSE 58; TEMP 97.6
[2020-02-06 06:48] LABS: BASO % 0.3 % (0.0-2.0); EOS % 0.3 % (0-4.0); GRAN # 9.4 (1.4-6.5); GRAN % 78.6 % (42.2-75.2); HEMATOCRIT 32.3 % (37.0-47.0); LYMPH # 1.3 (1.2-3.4); LYMPH % 10.6 % (20.0-51.0); MEAN CELL VOLUME 93 fl (80.0-100.0); MEAN CORPUSCULAR HEMOGLOBIN 29 pg (27.0-31.0); MEAN CORPUSCULAR HGB CONC 31 g/dl (33.0-37.0); MEAN PLATELET VOLUME 10.5 fl (7.4-10.4); MONO # 1.2 (0.1-0.6); MONO % 9.8 % (1.7-9.3); PLATELET COUNT 280 K/mm3 (130-400); RED BLOOD COUNT 3.46 M/mm3 (4.10-5.30); REDCELL DISTRIBUTION WIDTH-CV 15.4 % (11.5-14.5)
[2020-02-06 07:09] LABS: CALCIUM 8.2 mg/dL (8.4-10.2); CREATININE, serum 1.2 (0.52-1.25); POTASSIUM 4.2 mmol/L (3.4-5.0)
[2020-02-06 07:11] LABS: INR 1.3 (0.8-3.0); PROTHROMBIN TIME 14.8 SECONDS (9.7-12.8)
[2020-02-06 07:34] VITALS: BP 133/57; PULSE 62; TEMP 97.6
[2020-02-06 11:03] VITALS: BP 135/48; PULSE 60; TEMP 98
[2020-02-06 16:37] VITALS: BP 115/44; PULSE 60; TEMP 97.6
[2020-02-06 19:25] VITALS: BP 149/52; PULSE 68; TEMP 97.8
[2020-02-07 00:19] VITALS: BP 107/50; PULSE 62; TEMP 97.8
[2020-02-07 04:34] VITALS: BP 117/36; PULSE 55; TEMP 97.9
[2020-02-07 07:30] VITALS: BP 131/52; PULSE 62; TEMP 97.9
[2020-02-07 07:33] LABS: BASO # 0.1 (0.0-0.2); BASO % 0.5 % (0.0-2.0); EOS # 0.3 (0.0-0.7); EOS % 2.6 % (0-4.0); GRAN # 6.5 (1.4-6.5); GRAN % 68.8 % (42.2-75.2); LYMPH # 1.8 (1.2-3.4); MEAN CELL VOLUME 92 fl (80.0-100.0); MEAN CORPUSCULAR HEMOGLOBIN 30 pg (27.0-31.0); MEAN CORPUSCULAR HGB CONC 32 g/dl (33.0-37.0); MEAN PLATELET VOLUME 10.3 fl (7.4-10.4); MONO # 0.8 (0.1-0.6); MONO % 8.9 % (1.7-9.3); PLATELET COUNT 277 K/mm3 (130-400); RED BLOOD COUNT 3.37 M/mm3 (4.10-5.30); REDCELL DISTRIBUTION WIDTH-CV 15.3 % (11.5-14.5)
[2020-02-07 07:42] LABS: HEMATOCRIT 31.1 % (37.0-47.0)
[2020-02-07 07:44] LABS: INR 1.5 (0.8-3.0); PROTHROMBIN TIME 17.9 SECONDS (9.7-12.8)
[2020-02-07 08:00] LABS: CALCIUM 7.6 mg/dL (8.4-10.2); CREATININE, serum 1.53 (0.52-1.25); POTASSIUM 4.4 mmol/L (3.4-5.0)
[2020-02-07 12:00] VITALS: BP 114/44; PULSE 64; TEMP 97.4
[2020-02-07 18:01] VITALS: BP 129/61; PULSE 96; TEMP 97.8
[2020-02-07 19:02] VITALS: BP 114/56; PULSE 95; TEMP 98.4
[2020-02-08 00:12] VITALS: BP 119/50; PULSE 62; TEMP 98.3
[2020-02-08 05:25] VITALS: BP 121/44; PULSE 58; TEMP 98.2
[2020-02-08 07:09] LABS: INR 1.6 (0.8-3.0); PROTHROMBIN TIME 19.1 SECONDS (9.7-12.8)
[2020-02-08 07:52] VITALS: BP 128/52; PULSE 61; TEMP 97.8
[2020-02-08 11:53] VITALS: BP 135/54; PULSE 62; TEMP 97.2
[2020-02-08] MEDS ORDERED: COUMADIN4 MG PO (12:15)
[2020-02-08] MEDS ORDERED: PERCOCET 325 MG1 TA3 PO (12:17)
[2020-02-08] MEDS ORDERED: Lidocaine TP (12:18)
== END 2020-02-08 15:12 | DRG 537 ==
LOC: COL.ER 08:55 → MEDICAL 12:07
PROVIDERS: Emergency Medicine; Physician Assistant; ADMIT Hospitalist
DX: S76.012A Strain of muscle, fascia and tendon of left hip, initial encounter (principal); E87.2 Acidosis; F17.210 Nicotine dependence, cigarettes, uncomplicated; M25.511 Pain in right shoulder; N18.3 Chronic kidney disease, stage 3 (moderate); E10.65 Type 1 diabetes mellitus with hyperglycemia; I25.10 Atherosclerotic heart disease of native coronary artery without angina pectoris; I48.91 Unspecified atrial fibrillation; E03.9 Hypothyroidism, unspecified; G40.909 Epilepsy, unspecified, not intractable, without status epilepticus; R91.1 Solitary pulmonary nodule; H35.30 Unspecified macular degeneration; W01.0XXA Fall on same level from slipping, tripping and stumbling without subsequent striking against object, initial encounter; Y93.01 Activity, walking, marching and hiking; Z95.1 Presence of aortocoronary bypass graft; Y92.029 Unspecified place in mobile home as the place of occurrence of the external cause; Z86.73 Personal history of transient ischemic attack (TIA), and cerebral infarction without residual deficits; Z90.89 Acquired absence of other organs; Z90.49 Acquired absence of other specified parts of digestive tract; Z90.710 Acquired absence of both cervix and uterus
CPT/HCPCS: OP; 99231-AI; 99232-AI; 99239; J1170; J3010; J7040